=== PATIENT | female | born 1970 | race American Indian/Alaskan Native ===

== ENCOUNTER 2016-11-04 09:05 | Inpatient (IN) | payer SELFPAY ==
[2016-11-04 10:17] LABS: Basophils % (Auto) 0.4 % (0.0-1.8); Eosinophils % (Auto) 0.7 % (0.0-4.3); Hemoglobin 13.2 gm/dl (10.1-14.3); Mean Corpuscular HGB Conc 34 % (30-34); Mean Corpuscular Hemoglobin 30 pg (28-32); Mean Corpuscular Volume 88 fl (79-97); Platelet Count 261 K/mm3 (140-440); Red Blood Count 4.42 M/mm3 (3.65-5.03); Red Cell Distribution Width 13.5 % (13.2-15.2); White Blood Count 7.5 K/mm3 (4.5-11.0)
[2016-11-04 10:25] LABS: INR 0.98 (0.87-1.13)
[2016-11-04 10:26] LABS: Partial Thromboplastin Time 29.1 Sec. (24.2-36.6)
[2016-11-04 10:35] LABS: Anion Gap 19 mmol/L; Blood Urea Nitrogen 11 mg/dL (7-17); Calcium 9.1 mg/dL (8.4-10.2); Carbon Dioxide 24 mmol/L (22-30); Chloride 99.7 mmol/L (98-107); Glucose 115 mg/dL (65-100); Potassium 3.8 mmol/L (3.6-5.0); Sodium 139 mmol/L (137-145)
--- NOTE | 2016-11-04 11:48 | Cat Scan Report ---
CT HEAD WITHOUT CONTRAST: HISTORY: CVA. Serial contiguous axial images were obtained through the cranium. Intravenous contrast material was not administered. The ventricles are normal in size and appearance. There is no mass effect or midline shift. No areas of abnormally increased or decreased attenuation are seen. No mass lesion is seen. The mastoid air cells and visualized portions of the sinuses are normal. IMPRESSION: Cranial CT scan within normal limits.
[2016-11-04] MEDS ORDERED: ASPIRIN PO ONE (21:17)
--- NOTE | 2016-11-04 21:32 | Emergency Department Report ---
ED Neuro Deficit HPI - General Chief Complaint: Neuro Symptoms/Deficit Stated Complaint: RT SIDE FACE NUMBNESS/HEADACHE Time Seen by Provider: 11/04/16 20:28 Source: patient, old records reviewed Mode of arrival: Ambulatory Limitations: No Limitations - History of Present Illness Initial Comments: 46-year-old female with a past medical history presents to the hospital with right facial numbness. Patient states she has had intermittent right facial numbness for the last several months but more persistent since last night. She also says that her right eye feels heavy. Mild intermittent headache reported but no headache at this time. She says her face has a cold sensation like when you eat mint gum. She has chronic right ear ringing sounds 1 year and has not followed up with ENT. She states that both her arms feel weak. - Related Data Home Medications: Home Medications Medication Instructions Recorded Confirmed Last Taken No Known Home Medications [No 11/05/16 11/05/16 Unknown Reported Home Medications] Allergies/Adverse Reactions: Allergies Allergy/AdvReac Type Severity Reaction Status Date / Time No Known Allergies Allergy Unverified 07/19/13 13:42 ED Review of Systems ROS: Stated complaint: RT SIDE FACE NUMBNESS/HEADACHE Other details as noted in HPI Comment: All other systems reviewed and negative Other: Constitutional: No fevers chills Eyes: No eye pain visual changes or discharge ENT: as per hpi Neck: Denies pain Respiratory: Denies cough wheezing shortness of breath Cardiovascular: Denies chest pain, palpitations, syncope GI: Denies abdominal pain, nausea, vomiting, diarrhea : Denies dysuria, urinary frequency, or urgency Musculoskeletal: Denies back pain, joint swelling Skin: Denies rash, lesions, erythema Neurologic: as per hpi Psychiatric: Denies suicidal ideation, hallucinations Hematological/lymphatic: Denies easy bruising, lymphadenopathy ED Past Medical Hx - Past Medical History Previous Medical History?: No Hx Hypertension: No Hx Seizures: No - Surgical History Past Surgical History?: No - Social History Smoking Status: Never Smoker Substance Use Type: None - Medications Home Medications: Home Medications Medication Instructions Recorded Confirmed Last Taken Type No Known Home Medications [No 11/05/16 11/05/16 Unknown History Reported Home Medications] ED Neuro Physical Exam - General Limitations: No Limitations Suspected Stroke: Yes - NIHSS Assessment Interval: Baseline 1a. Level of Consciousness: alert 1b. LOC Questions: answers correctly 1c. LOC Commands: performs tasks correctly 2. Best Gaze: normal 3. Visual: no visual loss 4. Facial Palsy: normal symmetrical movement 5b. Motor Arm Right: no drift 5a. Motor Arm Left: no drift 6a. Motor Leg Left: no drift 6b. Motor Leg Right: no drift 7. Limb Ataxia: absent 8. Sensory: mild/moderate sensory loss 9. Best Language: no aphasia 10. Dysarthria: normal 11. Extinction/Inattention: no abnormality Total Score: 1 Stroke Severity: Minor Stroke - Other Other exam information: General: No limitations, patient is alert in no acute distress Head exam: Atraumatic, normocephalic Eyes exam: Normal appearance, pupils equal reactive to light, extraocular movements intact ENT: Moist mucous membrane, normal oropharynx Neck exam: Normal inspection, full range of motion, no meningismus nontender Respiratory exam: Clear to auscultation bilateral, no wheezes, rales, crackles Cardiovascular: Normal rate and rhythm, normal heart sounds Abdomen: Soft, nondistended, and nontender, with normal bowel sounds, no rebound, or guarding Extremity: Full range of motion normal inspection no deformity Back: Normal Inspection, full range of motion, no tenderness Neurologic: Alert, oriented x3, cranial nerves intact, no motor deficit, decreased sensation to touch and pinprick to the right side of the face Psychiatric: normal affect, normal mood Skin: Warm, dry, intact ED Course Vital Signs 11/04/16 11/04/16 11/05/16 09:13 20:31 00:00 Temperature 98.9 F 98.2 F Pulse Rate 79 71 74 Respiratory 14 14 12 Rate Blood Pressure 132/91 Blood Pressure 144/91 136/81 [Left] O2 Sat by Pulse 100 100 100 Oximetry - Reevaluation(s) Reevaluation #1: 11/04/16 22:09 asa given in ed - Consultations Consultation #1: 11/04/16 21:16 case d/w Dr Thomas, neurologist. Suggests admission to hospital for MRI given persistent numbness - Lab Data Result diagrams: 11/04/16 10:04 11/04/16 10:04 Lab Results 11/04/16 11/04/16 11/04/16 Range/Units 10:04 10:04 10:04 WBC 7.5 (4.5-11.0) K/mm3 RBC 4.42 (3.65-5.03) M/mm3 Hgb 13.2 (10.1-14.3) gm/dl Hct 39.0 (30.3-42.9) % MCV 88 (79-97) fl MCH 30 (28-32) pg MCHC 34 (30-34) % RDW 13.5 (13.2-15.2) % Plt Count 261 (140-440) K/mm3 Lymph % (Auto) 26.6 (13.4-35.0) % [place] % (Auto) 4.8 (0.0-7.3) % Eos % (Auto) 0.7 (0.0-4.3) % Baso % (Auto) 0.4 (0.0-1.8) % Lymph # 2.0 (1.2-5.4) K/mm3 [place] # 0.4 (0.0-0.8) K/mm3 Eos # 0.1 (0.0-0.4) K/mm3 Baso # 0.0 (0.0-0.1) K/mm3 Seg Neutrophils % 67.5 (40.0-70.0) % Seg Neutrophils # 5.0 (1.8-7.7) K/mm3 PT 12.9 (12.2-14.9) Sec. INR 0.98 (0.87-1.13) APTT 29.1 (24.2-36.6) Sec. Thrombin Time (15.1-19.6) Sec. Sodium 139 (137-145) mmol/L Potassium 3.8 (3.6-5.0) mmol/L Chloride 99.7 (98-107) mmol/L Carbon Dioxide 24 (22-30) mmol/L Anion Gap 19 mmol/L BUN 11 (7-17) mg/dL Creatinine 0.5 L (0.7-1.2) mg/dL Estimated GFR > 60 ml/min BUN/Creatinine Ratio 22.00 % Glucose 115 H (65-100) mg/dL Calcium 9.1 (8.4-10.2) mg/dL Troponin T < 0.010 (0.00-0.029) ng/mL 11/04/16 Range/Units 10:04 WBC (4.5-11.0) K/mm3 RBC (3.65-5.03) M/mm3 Hgb (10.1-14.3) gm/dl Hct (30.3-42.9) % MCV (79-97) fl MCH (28-32) pg MCHC (30-34) % RDW (13.2-15.2) % Plt Count (140-440) K/mm3 Lymph % (Auto) (13.4-35.0) % [place] % (Auto) (0.0-7.3) % Eos % (Auto) (0.0-4.3) % Baso % (Auto) (0.0-1.8) % Lymph # (1.2-5.4) K/mm3 [place] # (0.0-0.8) K/mm3 Eos # (0.0-0.4) K/mm3 Baso # (0.0-0.1) K/mm3 Seg Neutrophils % (40.0-70.0) % Seg Neutrophils # (1.8-7.7) K/mm3 PT (12.2-14.9) Sec. INR (0.87-1.13) APTT (24.2-36.6) Sec. Thrombin Time 14.0 L (15.1-19.6) Sec. Sodium (137-145) mmol/L Potassium (3.6-5.0) mmol/L Chloride (98-107) mmol/L Carbon Dioxide (22-30) mmol/L Anion Gap mmol/L BUN (7-17) mg/dL Creatinine (0.7-1.2) mg/dL Estimated GFR ml/min BUN/Creatinine Ratio % Glucose (65-100) mg/dL Calcium (8.4-10.2) mg/dL Troponin T (0.00-0.029) ng/mL - EKG Data -: EKG Interpreted by Me (nsr rate 75) When compared to previous EKG there are: previous EKG unavailable - Radiology Data Radiology results: report reviewed (ct head: naf) - Medical Decision Making After consultation with neurology inpatient workup and MRI recommended by neurology. - Differential Diagnosis multiple sclerosis, TIA, AK, facial nerve paresthesia - Thrombolytic Inclusion/Exclusion Thrombolytic Exclusion Criteria: Symptom Onset > 3 Hours Critical Care Time: No Critical care attestation.: If time is entered above; I have spent that time in minutes in the direct care of this critically ill patient, excluding procedure time. ED Disposition Clinical Impression: Rt facial numbness Disposition: OP ADMITTED IP TO THIS HOSP Is pt being admited?: Yes Does the pt Need Aspirin: Yes Condition: Stable Time of Disposition: 21:33 (Dr Meeks/hosp)
[2016-11-05] MEDS ORDERED: PHENERGAN PR PRN (00:29)
[2016-11-05] MEDS ORDERED: REGLAN PO PRN (00:29)
[2016-11-05] MEDS ORDERED: SODIUM CHLORIDE FLUSH SYRINGE 10 ML IV PRN (00:29)
[2016-11-05] MEDS ORDERED: ZOFRAN IV PRN (00:29)
[2016-11-05] MEDS ORDERED: MILK OF MAGNESIA PO PRN (00:29)
[2016-11-05] MEDS ORDERED: TYLENOL PO PRN (00:29)
[2016-11-05] MEDS ORDERED: DULCOLAX PR PRN (00:29)
--- NOTE | 2016-11-05 00:37 | History and Physical Report ---
History of Present Illness Date of examination: 11/05/16 Date of admission: 11/05/16 Chief complaint: Right-sided facial numbness History of present illness: This is a 46-year-old female with no significant past medical history presents to the hospital with right sided facial numbness. Patient states she has had intermittent right facial numbness for the last several months but more persistent since last night. She also says that her right eye feels heavy. Mild intermittent headache reported but no headache at this time. She says her face has a cold sensation like when one eat mint gum. She has chronic right ear ringing sounds 1 year and has not followed up with ENT. She states that both her arms also feel weak. She had CT scan in the ER which showed no acute process. Neurology recommended to admit her with stroke protocol. Patient denies any facial droop or difficulty in swallowing or speech. Past medical History: None Past surgical History: None Social History: Lives with family, denies any smoking, drinking and elicit drug abuse. Family History: Significant for stroke in grandmother and mother. Review of System: Constitutional: no fever, no chills, no weight loss Ears, eyes, nose, mouth and throat: no nasal congestion, no nasal discharge, no sinus pressure, no vision change, no red eye. Right ear ringing sensation. Neck: No neck pain or rigidity. Cardiovascular: No chest pain, no orthopnea, no palpitations, no leg swelling Respiratory: No shortness of breath, no cough, no congestion, no wheezing Gastrointestinal: no abdominal pain, no nausea, no vomiting Genitourinary : no dysuria, no hematuria Musculoskeletal: no joint swelling or muscle ache Integumentary: no rash, no pruritis Neurological: + right facial numbness, no tingling Endocrine: no cold or heat intolerance, no polyuria or polydipsia Hematologic/Lymphatic: no easy bruising, no easy bleeding, no gland swelling Allergic/Immunologic: no urticaria, no angioedema. Medications and Allergies Allergies Allergy/AdvReac Type Severity Reaction Status Date / Time No Known Allergies Allergy Unverified 07/19/13 13:42 Home Medications Medication Instructions Recorded Confirmed Last Taken Type No Known Home Medications [No 11/05/16 11/05/16 Unknown History Reported Home Medications] Exam - Physical Exam Narrative exam: GENERAL: This is well-developed well-nourished female lying on bed appeared to be in no discomfort. HEENT: Normocephalic. Atraumatic. Extraocular motions are intact. No conjunctival congestion or icterus. Patient has moist mucous membranes. External auditory canal and nares patent bilaterally. NECK: Supple. Trachea midline. No JVD, thyromagaly or lymphadenopathy. CHEST/LUNGS: Clear to auscultated bilaterally. There is no respiratory distress noted, breathing nonlabored. No wheezes crackles or rhonchi. HEART/CARDIOVASCULAR: Regular in rate and rhythm. PMI at the apex. There is no gallop rub or murmur. ABDOMEN: Abdomen is soft, nontender. Patient has normal bowel sounds. There is no abdominal distention. No organomagaly or rigidity. SKIN: There is no rash, no erythrema. There is no diaphoresis. Warm and dry. NEUROLOGY: The patient is awake, alert, and oriented. The patient is cooperative. The patient has normal speech. No focal motor deficit. MUSCULOSKELETAL: No joint effusion or tenderness. Muscle strength equal bilaterally. No muscle wasting. EXTRIMITY: No edema, cyanosis or clubbing. PSYCH: No depression or anxiety noted. Cooperative. - Constitutional Vitals: Temp Pulse Resp BP Pulse Ox 98.2 F 71 14 144/91 100 11/04/16 20:31 11/04/16 20:31 11/04/16 20:31 11/04/16 20:31 11/04/16 20:31 Results - Labs CBC & Chem 7: 11/04/16 10:04 11/04/16 10:04 Labs: Laboratory Last Values WBC 7.5 K/mm3 (4.5-11.0) 11/04/16 10:04 RBC 4.42 M/mm3 (3.65-5.03) 11/04/16 10:04 Hgb 13.2 gm/dl (10.1-14.3) 11/04/16 10:04 Hct 39.0 % (30.3-42.9) 11/04/16 10:04 MCV 88 fl (79-97) 11/04/16 10:04 MCH 30 pg (28-32) 11/04/16 10:04 MCHC 34 % (30-34) 11/04/16 10:04 RDW 13.5 % (13.2-15.2) 11/04/16 10:04 Plt Count 261 K/mm3 (140-440) 11/04/16 10:04 Lymph % (Auto) 26.6 % (13.4-35.0) 11/04/16 10:04 [place] % (Auto) 4.8 % (0.0-7.3) 11/04/16 10:04 Eos % (Auto) 0.7 % (0.0-4.3) 11/04/16 10:04 Baso % (Auto) 0.4 % (0.0-1.8) 11/04/16 10:04 Lymph # 2.0 K/mm3 (1.2-5.4) 11/04/16 10:04 [place] # 0.4 K/mm3 (0.0-0.8) 11/04/16 10:04 Eos # 0.1 K/mm3 (0.0-0.4) 11/04/16 10:04 Baso # 0.0 K/mm3 (0.0-0.1) 11/04/16 10:04 Seg Neutrophils % 67.5 % (40.0-70.0) 11/04/16 10:04 Seg Neutrophils # 5.0 K/mm3 (1.8-7.7) 11/04/16 10:04 PT 12.9 Sec. (12.2-14.9) 11/04/16 10:04 INR 0.98 (0.87-1.13) 11/04/16 10:04 APTT 29.1 Sec. (24.2-36.6) 11/04/16 10:04 Thrombin Time 14.0 Sec. (15.1-19.6) L 11/04/16 10:04 Sodium 139 mmol/L (137-145) 11/04/16 10:04 Potassium 3.8 mmol/L (3.6-5.0) 11/04/16 10:04 Chloride 99.7 mmol/L (98-107) 11/04/16 10:04 Carbon Dioxide 24 mmol/L (22-30) 11/04/16 10:04 Anion Gap 19 mmol/L 11/04/16 10:04 BUN 11 mg/dL (7-17) 11/04/16 10:04 Creatinine 0.5 mg/dL (0.7-1.2) L 11/04/16 10:04 Estimated GFR > 60 ml/min 11/04/16 10:04 BUN/Creatinine Ratio 22.00 % 11/04/16 10:04 Glucose 115 mg/dL (65-100) H 11/04/16 10:04 Calcium 9.1 mg/dL (8.4-10.2) 11/04/16 10:04 Troponin T < 0.010 ng/mL (0.00-0.029) 11/04/16 10:04 - Imaging and Cardiology CT Scan - head: report reviewed (no acute intracranial abnormality) Assessment and Plan Assessment and plan: Right sided facial numbness Tobacco abuse Plan: Admit to medicine Place on stroke protocol Obtain MRI of the head, carotid Doppler, 2-D echocardiogram Consult neurology Place on aspirin and statin Monitor BP, supportive care obtain B12 and TSH level GI and DVT prophylaxis Advance Directives: Yes VTE prophylaxis?: Chemical Plan of care discussed with patient/family: Yes
[2016-11-05] MEDS ORDERED: NACL 0.9% 1000 ML 1,000 ML IV SCH (01:00)
--- NOTE | 2016-11-05 10:39 | Magnetic Resonance Report ---
MRI BRAIN WITHOUT CONTRAST: 11/05/16 CLINICAL: Stroke. TECHNIQUE: Axial diffusion, T1, T2, FLAIR, gradient echo T2*, and sagittal T1 sequences on a 1.5 Sharee magnet. FINDINGS: Normal ventricles and sulci. No restricted diffusion. No abnormal signal. No mass or mass effect. No hemorrhage, edema or extra-axial collection. Normal pituitary and optic chiasm. The brainstem and cerebellum are normal. Intact vascular flow voids. Normal sinuses. The orbits, and soft tissues are normal. Normal calvarium and skull base. IMPRESSION: Normal study.
--- NOTE | 2016-11-05 12:56 | Event Note ---
Date: 11/05/16 Patient seen and examined. This is a follow-up from an admission earlier this morning. We will continue plan as outlined in H&P.
[2016-11-05] MEDS: ASPIRIN PO SCH (15:19)
[2016-11-05] MEDS: PEPCID PO SCH ×2 (15:19→22:16)
[2016-11-05] MEDS: LOVENOX SUB-Q SCH (15:21)
[2016-11-05] MEDS: ZOCOR PO SCH (22:15)
--- NOTE | 2016-11-06 08:18 | Discharge Summary ---
Providers - Providers Date of Admission: 11/05/16 00:29 Date of discharge: 11/07/16 Attending physician: REHANA PRIDE Primary care physician: TOPSTITCHER LOCKSTITCH Hospitalization Reason for admission: right face numbness Condition: Stable Hospital course: This is a 46-year-old female with no significant past medical history who presented to the hospital with right sided facial numbness. Patient stated she has had intermittent right facial numbness for the last several months but more persistent since the night prior to admission. She reports that right eye feels heavy. She does not report amaurosis fugax. Mild intermittent headache reported but no headache at this time. She has chronic right ear ringing sounds 1 year and has not followed up with ENT. She had CT scan in the ER which showed no acute process. Neurology recommended to admit her with stroke protocol. Patient denied any facial droop or difficulty in swallowing or speech. Patient had a carotid ultrasound which revealed right ICA stenosis of 50-79% and left ICA stenosis less than 50%. MRI was negative. Patient had no further deficits. Patient with CVA given that the symptoms lasted greater than one hour. However, given the fact the patient has had no residual deficits, we will discharge home with Plavix and follow-up with neurology. Patient also with no critical stenosis. Therefore patient will be followed up with vascular surgery as an outpatient. Echocardiogram was not available. Patient will need further follow-up with that as well as an outpatient. Dedicated discharge time 32 minutes. Disposition: DISCHARGED TO HOME OR SELFCARE - Discharge Diagnoses (1) CVA (cerebral vascular accident) Status: Acute Qualifiers: CVA mechanism: C Precerebral and cerebral artery: P Laterality of affected vessel: L Core Measure Documentation - Palliative Care Palliative Care/ Comfort Measures: Not Applicable - Core Measures Any of the following diagnoses?: stroke - Stroke Discharge Requirements Statin for LDL = or >70 mg/dl on DC: Yes Anticoag for atrial fib/atrial flutter: Not Applicable Reason for no anticoag for AF/F on DC: Not Indicated Antithrombotic for ischemic stroke: Yes Exam - Constitutional Vitals: Temp Pulse Resp BP Pulse Ox 98.2 F 73 18 107/64 97 11/06/16 05:36 11/06/16 05:36 11/06/16 05:36 11/06/16 05:36 11/06/16 05:36 General appearance: Present: no acute distress, well-nourished - EENT Eyes: Present: PERRL ENT: hearing intact, clear oral mucosa - Neck Neck: Present: supple, normal ROM - Respiratory Respiratory effort: normal Respiratory: bilateral: CTA - Cardiovascular Heart Sounds: Present: S1 & S2. Absent: rub, click - Extremities Extremities: pulses symmetrical, No edema Peripheral Pulses: within normal limits - Abdominal General gastrointestinal: Present: soft, non-tender, non-distended, normal bowel sounds Female genitourinary: Present: normal - Integumentary Integumentary: Present: clear, warm, dry - Musculoskeletal Musculoskeletal: gait normal, strength equal bilaterally - Psychiatric Psychiatric: appropriate mood/affect, intact judgment & insight - Neurologic Neurologic: CNII-XII intact, moves all extremities Plan Activity: no restrictions Weight Bearing Status: Full Weight Bearing Diet: low fat, low cholesterol, low salt Follow up with: PRIMARY CAREMD [Primary Care Provider] - 3-5 Days DUSTIN JENSEN MD [Staff Physician] - 7 Days TAYO ZAMORA MD [Staff Physician] - 7 Days Prescriptions: Aspirin [Aspirin TAB] 325 mg PO QDAY #30 tablet HYDROcodone/APAP 5-325 [[place] 5-325 mg TAB] 2 each PO Q6H PRN #30 tablet PRN Reason: Pain, Moderate (4-6) Simvastatin [Zocor TAB] 20 mg PO QHS #30 tablet
--- NOTE | 2016-11-06 12:24 | Progress Note ---
Assessment and Plan Assessment and plan: 1. TIA/CVA. Patient meets criteria for CVA given no resolution of symptoms less than 24 hours. MRI negative. Carotid Doppler however reveals 50-79% stenosis of right ICA and less than 50% stenosis of the left ICA. Given that there is no critical stenosis, patient may have outpatient follow-up with vascular surgery. Await echocardiogram. Patient will likely be discharged on aspirin and statin. 2. Tobacco abuse. Patient was counseled on tobacco cessation and risk factors associated with CVA. History Interval history: 46-year-old presents with right sided facial numbness and diagnosis of TIA/CVA. She denies focal deficits. No CP or SOB Hospitalist Physical - Constitutional Vitals: Temp Pulse Resp BP Pulse Ox 98.2 F 78 20 113/75 98 11/06/16 08:50 11/06/16 08:50 11/06/16 08:50 11/06/16 08:50 11/06/16 08:50 General appearance: Present: no acute distress, well-nourished - EENT Eyes: Present: PERRL, EOM intact ENT: hearing intact, clear oral mucosa, dentition normal - Neck Neck: Present: supple, normal ROM - Respiratory Respiratory effort: normal Respiratory: bilateral: CTA - Cardiovascular Rhythm: regular Heart Sounds: Present: S1 & S2. Absent: gallop, rub - Extremities Extremities: no ischemia, No edema, Full ROM - Abdominal General gastrointestinal: soft, non-tender, non-distended, normal bowel sounds - Integumentary Integumentary: Present: clear, warm, dry - Neurologic Neurologic: CNII-XII intact, moves all extremities Results - Labs CBC & Chem 7: 11/04/16 10:04 11/04/16 10:04 Labs: Laboratory Last Values WBC 7.5 K/mm3 (4.5-11.0) 11/04/16 10:04 RBC 4.42 M/mm3 (3.65-5.03) 11/04/16 10:04 Hgb 13.2 gm/dl (10.1-14.3) 11/04/16 10:04 Hct 39.0 % (30.3-42.9) 11/04/16 10:04 MCV 88 fl (79-97) 11/04/16 10:04 MCH 30 pg (28-32) 11/04/16 10:04 MCHC 34 % (30-34) 11/04/16 10:04 RDW 13.5 % (13.2-15.2) 11/04/16 10:04 Plt Count 261 K/mm3 (140-440) 11/04/16 10:04 Lymph % (Auto) 26.6 % (13.4-35.0) 11/04/16 10:04 [place] % (Auto) 4.8 % (0.0-7.3) 11/04/16 10:04 Eos % (Auto) 0.7 % (0.0-4.3) 11/04/16 10:04 Baso % (Auto) 0.4 % (0.0-1.8) 11/04/16 10:04 Lymph # 2.0 K/mm3 (1.2-5.4) 11/04/16 10:04 [place] # 0.4 K/mm3 (0.0-0.8) 11/04/16 10:04 Eos # 0.1 K/mm3 (0.0-0.4) 11/04/16 10:04 Baso # 0.0 K/mm3 (0.0-0.1) 11/04/16 10:04 Seg Neutrophils % 67.5 % (40.0-70.0) 11/04/16 10:04 Seg Neutrophils # 5.0 K/mm3 (1.8-7.7) 11/04/16 10:04 PT 12.9 Sec. (12.2-14.9) 11/04/16 10:04 INR 0.98 (0.87-1.13) 11/04/16 10:04 APTT 29.1 Sec. (24.2-36.6) 11/04/16 10:04 Thrombin Time 14.0 Sec. (15.1-19.6) L 11/04/16 10:04 Sodium 139 mmol/L (137-145) 11/04/16 10:04 Potassium 3.8 mmol/L (3.6-5.0) 11/04/16 10:04 Chloride 99.7 mmol/L (98-107) 11/04/16 10:04 Carbon Dioxide 24 mmol/L (22-30) 11/04/16 10:04 Anion Gap 19 mmol/L 11/04/16 10:04 BUN 11 mg/dL (7-17) 11/04/16 10:04 Creatinine 0.5 mg/dL (0.7-1.2) L 11/04/16 10:04 Estimated GFR > 60 ml/min 11/04/16 10:04 BUN/Creatinine Ratio 22.00 % 11/04/16 10:04 Glucose 115 mg/dL (65-100) H 11/04/16 10:04 Calcium 9.1 mg/dL (8.4-10.2) 11/04/16 10:04 Troponin T < 0.010 ng/mL (0.00-0.029) 11/04/16 10:04 Triglycerides 156 mg/dL (2-149) H 11/06/16 06:18 Cholesterol 155 mg/dL (50-199) 11/06/16 06:18 LDL Cholesterol Direct 93 mg/dL (50-130) 11/06/16 06:18 HDL Cholesterol 31 mg/dL (40-59) L 11/06/16 06:18 Cholesterol/HDL Ratio 5.00 % 11/06/16 06:18 Vitamin B12 854.2 pg/mL (211-911) 11/05/16 02:01 TSH 2.140 mlU/mL (0.270-4.200) 11/05/16 02:01
[2016-11-06] MEDS: LOVENOX SUB-Q SCH (12:51)
[2016-11-06] MEDS: NORCO 5/325 PO PRN (12:52)
[2016-11-06] MEDS: PEPCID PO SCH ×2 (12:53→22:38)
[2016-11-06] MEDS: ASPIRIN PO SCH (12:53)
[2016-11-06] MEDS: ZOCOR PO SCH (22:38)
--- NOTE | 2016-11-06 23:42 | Admit Criteria Form ---
Admission Criteria Documentation: NEUROLOGY GRG Clinical Indications for Admission to Inpatient Care (Place ' X' for any and all applicable criteria): Hospital admission is needed for appropriate care of the patient because of ANY ONE of the following: [ ]I. New-onset or worsening altered mental status remaining after emergency or observation level care (as appropriate) (9)(10)(11) [ ]II. Severe CANAL TENDER infections or inflammatory conditions, including ANY ONE of the following(1)(2)(3): [ ]a) Intracranial abscess [ ]b) Spinal abscess or myelitis [ ]c) Tuberculous or other nonbacterial, nonviral CANAL TENDER infection(8) [ ]III. Encephalitis(1)(2)(3) [ ]IV. Status epilepticus or repetitive seizures not controlled with emergent treatment [A] (7)(8) [ ]V. Transient alteration in consciousness with high-risk etiology; examples include (12)(13): [ ]a) Cardiovascular source [ ]b) Cataplexy [ ]. Cerebral aneurysm requiring ANY ONE of the following(14): [ ]a) IV antihypertensives or vasoactive agents [ ]b) Sedation and analgesia for suspected leak [ ]c) Need for external ventricular drainage and cerebral perfusion pressure monitoring [ ]d) Emergent evaluation to determine need for surgical clipping or endovascular coiling by interventional radiology. If surgery is required ( Also use Craniotomy, Supratentorial, for Surgery of Bleeding Intracranial Aneurysm (for bleeding aneurysm) or Craniotomy, Supratentorial (for nonbleeding aneurysm) as appropriate. [ ]VII. Altered mental status that is severe or persistent(16) [ ]VIII New-onset severe neurologic findings requiring inpatient care; examples include: [ ]a) Papilledema [ ]b) Cerebral edema [ ]c) Mass effect on imaging [X ]IX. New-onset severe neurologic symptom requiring inpatient care indicated by ANY ONE of the following: [ ]a) Aphasia(15) [ ]b) Weakness (grade 3 or less) [ ]c) Paralysis (eg, hemiplegia) [ ]d) Spasticity(16) [ ]e) Ataxia(17) [ ]f) Amnesia(18) [ ]g) Involuntary movements(19) [ ]h) Vertigo [ X]i) Other severe neurologic symptom not treatable at alternative level of care (eg, observation care) [ ]X. Guillain-Willows syndrome(20) [ ]XI. Myasthenia gravis crisis or inpatient monitoring need as indicated by ANY ONE of the following(21): [ ]a) Inadequate airway protection [ ]b) Respiratory insufficiency requiring intubation or inpatient. monitoring [ ]c) Progressive dysphagia with failure to thrive [ ]d) Intensive treatment (eg, course of plasmapheresis) with inadequate outpatient situation to monitor patients status [ ]XII. Multiple sclerosis or other acute demyelinating disease requiring inpatient care as indicated by ANY ONE of the following (22)(23): [ ]a) Acute severe deterioration requiring inpatient treatment (eg, IV steroids, plasmapheresis, close observation) [ ]b) Acute complication requiring inpatient care (eg, sepsis, severe decubitus, aspiration) [ ]XIII. Intracranial hypertension (eg, pseudotumor cerebri) requiring inpatient care (eg, acute visual loss, inadequate oral intake) (24) [ ]XIV.Parkinson disease requiring inpatient care (Also use Optimal Recovery Care Criteria or General Recovery Criteria as appropriate) indicated by ANY ONE of the following(25): [ ]a) Infection (eg, aspiration pneumonia) not treatable at alternative level of care [ ]b) Volume depletion not responsive to emergency and observation care treatment (as appropriate) [ ]c) Life-threatening agitation or psychotic behavior not treatable on emergency, observation care, or alternative level (eg, residential) basis [ ]d) Severe medication withdrawal effects (eg, freezing, neuroleptic malignant syndrome) not responsive to emergency and observation care treatment (as appropriate) [ ]e) Other severe manifestation not treatable at alternative level of care [ ]XV.Amyotrophic lateral sclerosis with inpatient care needs as indicated by ANY ONE of the following(26): [ ]a) Acute complications requiring inpatient care (Use Optimal Recovery Care Criteria or General Recovery Criteria as appropriate); examples include: [ ]i) Aspiration pneumonia [ ]ii) Sepsis [ ]b) Dehydration or hypovolemia (not responsive to emergency and observation care treatment as appropriate) AND artificial support desired [ ]c) Inadequate airway protection AND artificial support desired [ ]d) Severe ventilatory insufficiency AND artificial support desired [ ]XVI.Severe myopathy, neuropathy, or other neuromuscular disease as indicated by ANY ONE of the following: [ ]a) New-onset severe diffuse weakness (eg, strength 3/5 or less) [ ]b) Severe dysphagia [ ]c) Dyspnea at rest or with minimal exertion (new) [ ]d) Inadequate airway protection [ ]e) Inadequate ventilation as indicated by ANY ONE of the following : [ ]i) Partial pressure of carbon dioxide greater than 44 mm Hg (5.9 kPa) (new) [ ]ii) Reduced peak expiratory flow rate (new) [ ]iii) Vital capacity less than 50% of predicted ( less than 15 mL/kg) [ ]iv) Peak inspiratory force less negative than -30 cm H20 (-2942 Pa) [ ]XVII.Complications of congenital or degenerative disease (eg, infection, seizures, dehydration, injury) not responsive to emergency and observation care treatment (as appropriate ) [C](16)(29)(30) [ ]XVIII.Suspected or confirmed nerve or muscle toxic injury, including ANY ONE of the following: [ ]a) Rhabdomyolysis(31) [ ]b) Botulism(32) [ ]c) Other severe toxin-induced sign or symptom [ ]XIX. Neurologic trauma requiring inpatient treatment (medical) indicated by ANY ONE of the following(33)(34): [ ]a) Vital signs or neurologic signs more frequently than every 4 hours [ ]b) Hyperosmolar therapy [ ]c) Respiratory monitoring [ ]d) Intracranial pressure monitoring and treatment [ ]e) Stabilization and immobilization device placement (eg, braces, body jacket) [ ]f) Intubation & mechanical ventilation for airway protection or therapeutic hyperventilation [ ]g) Other treatment or monitoring needed that requires inpatient level of care [ ]XX.Complications of neurologic devices (eg, ventricular shunt, neurostimulator) requiring ANY ONE of the following(35)(36): [ ]a) IV antibiotics with monitoring while awaiting culture results [ ]b) Monitoring for hydrocephalus [ ]XXI Vasculitis with ANY ONE of the following(4)(5): [ ]a) Altered mental status [ ]b) Psychosis [ ]c) Seizures [ ]XXII. Neurology condition and ALL of the following: [ ]a) Symptom or finding for which emergency and observation care have failed or are not considered appropriate (Use General Criteria: Observation Care as appropriate) [ ]b) Presence of ANY ONE of the following: [ ]i) A General Admission Criteria [ ]ii A Pediatric General Admission Criteria The original [facility] content created by [facility] has been revised. The portions of the content which have been revised are identified through the use of italic text or in bold, and [facility] has neither reviewed nor approved the modified material. All other unmodified content is copyright [facility] Please see references footnoted in the original [facility] edition 2016 Admission Criteria Met: Yes
[2016-11-07 08:43] VITALS: BP 139/83
[2016-11-07] MEDS: NORCO 5/325 PO PRN ×2 (08:50→09:12)
[2016-11-07] MEDS: ASPIRIN PO SCH (09:12)
[2016-11-07] MEDS: PEPCID PO SCH (09:12)
[2016-11-07] MEDS: LOVENOX SUB-Q SCH (09:14)
--- NOTE | 2016-11-07 21:50 | Echocardiography Report ---
REASON FOR STUDY: Acute stroke. INTERPRETATION: The aortic root appears normal. The left atrium appears normal in size. No thrombus is identified. The right atrium appears normal in size. No thrombus is identified. The mitral valve appears structurally normal with mild mitral regurgitation. There is no evidence of mitral stenosis. The tricuspid valve appears structurally normal with trace tricuspid regurgitation. No evidence of tricuspid stenosis. The aortic valve is structurally normal. There is no evidence of aortic stenosis or regurgitation. The pulmonic valve appears structurally normal. There is trace pulmonic regurgitation. The left ventricular cavity appears normal in size with normal global systolic function. The estimated left ventricular ejection fraction is 55-60%. Left ventricular diastolic function is normal. Right ventricular size and systolic function are normal. There is no pericardial effusion. No intracardiac thrombosis identified by the study. SUMMARY: No intracardiac thrombosis identified by the study. There is mild mitral regurgitation. There is trace tricuspid regurgitation. The left ventricular cavity appears normal in size with normal global systolic function. EF 55-60%. Normal right ventricular size and systolic function. [facility]# [id number] EMIR/NAEEM BURDICK
== END 2016-11-07 10:03 | disposition home or self-care (01) | DRG 66 ==
LOC: ED 09:05 → 4A 11-05 00:29
PROVIDERS: ADMIT Internal Medicine; ATTEND Hospitalist
DX: I63.9 Cerebral infarction, unspecified (principal); I65.23 Occlusion and stenosis of bilateral carotid arteries; Z82.3 Family history of stroke; Z72.0 Tobacco use; Z71.6 Tobacco abuse counseling
CPT/HCPCS: 36415; 70450; 70551; 80048; 80061; 82607; 82962; 84443; 84484; 85025; 85610; 85670; 85730; 93005; 93010; 93306; 93880; 99406; J1650; J7030

== ENCOUNTER 2016-12-17 17:43 | Emergency (ER) | payer SELFPAY ==
--- NOTE | 2016-12-17 18:41 | Cat Scan Report ---
FINAL REPORT EXAM: CT HEAD/BRAIN WO CON HISTORY: neuro deficits TECHNIQUE: CT head without contrast PRIORS: None. FINDINGS: No acute intra-axial or extra-axial hemorrhage is identified. There is no evidence of midline shift or mass effect. The ventricles and sulci are within normal limits. [place]-white matter differentiation is intact. No acute parenchymal abnormalities seen. Bony calvarium is grossly intact. Visualized portions of the mastoids and paranasal sinuses are unremarkable. IMPRESSION: Negative CT head
[2016-12-17 19:55] LABS: Basophils % (Auto) 0.2 % (0.0-1.8); Hematocrit 36.4 % (30.3-42.9); Hemoglobin 12.3 gm/dl (10.1-14.3); Mean Corpuscular HGB Conc 34 % (30-34); Mean Corpuscular Hemoglobin 30 pg (28-32); Mean Corpuscular Volume 88 fl (79-97); Platelet Count 279 K/mm3 (140-440); Red Blood Count 4.14 M/mm3 (3.65-5.03); Red Cell Distribution Width 13.6 % (13.2-15.2); White Blood Count 9.3 K/mm3 (4.5-11.0)
[2016-12-17 20:06] LABS: INR 0.91 (0.87-1.13); Partial Thromboplastin Time 31.3 Sec. (24.2-36.6)
[2016-12-17 20:10] LABS: Anion Gap 15 mmol/L; Blood Urea Nitrogen 9 mg/dL (7-17); Calcium 9.6 mg/dL (8.4-10.2); Carbon Dioxide 28 mmol/L (22-30); Chloride 96.8 mmol/L (98-107); Glucose 103 mg/dL (65-100); Potassium 3.3 mmol/L (3.6-5.0); Sodium 136 mmol/L (137-145)
[2016-12-18] MEDS ORDERED: FIORICET PO ONE (05:07)
[2016-12-18 05:29] VITALS: BP 104/68
--- NOTE | 2016-12-18 06:16 | Emergency Department Report ---
ED Neuro Deficit HPI - General Chief Complaint: Neuro Symptoms/Deficit Stated Complaint: RECENT STROKE Oct/NUMBNESS/TINGLING Time Seen by Provider: 12/18/16 06:12 Source: patient Mode of arrival: Ambulatory Limitations: No Limitations - History of Present Illness Initial Comments: She was admitted in October for a stroke workup which included an MRI which was negative. 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 Her symptoms were paresthesias of the right face. Patient states that this time the paresthesias instead of stopping at her mandibular area involved her entire right face. She does not complain of pain or headache. He does not complain of numbness. She describes a pins and needles sensation. She denies any other sort of neurological change. She does not complain of neck pain. -: Gradual, days(s) Location: right face Presenting Symptoms: Absent: Weak/Paralyzed One Side, Sudden, Severe Headache, Blurred/Loss of Vision, Facial Droop/Numbness, Unable to Speak Clearly, Altered Mental Status History of same: Yes Place: home Severity: moderate Quality: tingling Improves With: none Worsens With: none On Anticoagulants: No Context: gradual onset Associated Symptoms: denies other symptoms Treatments Prior to Arrival: none - Related Data Home Medications: Previous Rx's Medication Instructions Recorded Last Taken Type Aspirin [Aspirin TAB] 325 mg PO QDAY #30 tablet 11/07/16 Unknown Rx HYDROcodone/APAP 5-325 [[place] 2 each PO Q6H PRN #30 tablet 11/07/16 Unknown Rx 5-325 mg TAB] Simvastatin [Zocor TAB] 20 mg PO QHS #30 tablet 11/07/16 Unknown Rx Simvastatin [Zocor TAB] 20 mg PO QHS #30 tablet 12/18/16 Unknown Rx traMADol [Ultram 50 MG tab] 50 mg PO Q6HR PRN #14 tablet 12/18/16 Unknown Rx Allergies/Adverse Reactions: Allergies Allergy/AdvReac Type Severity Reaction Status Date / Time No Known Allergies Allergy Verified 12/17/16 17:57 ED Review of Systems ROS: Stated complaint: RECENT STROKE Oct/NUMBNESS/TINGLING Other details as noted in HPI Constitutional: denies: chills, fever Eyes: denies: eye pain, eye discharge, vision change ENT: denies: ear pain, throat pain Respiratory: denies: cough, shortness of breath, wheezing Cardiovascular: denies: chest pain, palpitations Endocrine: no symptoms reported Gastrointestinal: denies: abdominal pain, nausea, diarrhea Genitourinary: denies: urgency, dysuria, discharge Musculoskeletal: denies: back pain, joint swelling, arthralgia Skin: denies: rash, lesions Neurological: paresthesias. denies: headache, weakness, numbness, confusion, abnormal gait Psychiatric: denies: anxiety, depression Hematological/Lymphatic: denies: easy bleeding, easy bruising ED Past Medical Hx - Past Medical History Hx Hypertension: No Hx CVA: Yes (TIA (OCTOBER 2016)) Hx Congestive Heart Failure: No Hx Diabetes: No Hx Seizures: No Hx Asthma: No Hx COPD: No Additional medical history: HIGH CHOLESTEROL. LEFT ICA STENOSIS - Surgical History Additional Surgical History: TUBAL LIGATION - Social History Smoking Status: Current Every Day Smoker Substance Use Type: Prescribed - Medications Home Medications: Home Medications Medication Instructions Recorded Confirmed Last Taken Type Aspirin [Aspirin TAB] 325 mg PO QDAY #30 tablet 11/07/16 Unknown Rx HYDROcodone/APAP 5-325 [[place] 2 each PO Q6H PRN #30 tablet 11/07/16 Unknown Rx 5-325 mg TAB] Simvastatin [Zocor TAB] 20 mg PO QHS #30 tablet 11/07/16 Unknown Rx Simvastatin [Zocor TAB] 20 mg PO QHS #30 tablet 12/18/16 Unknown Rx traMADol [Ultram 50 MG tab] 50 mg PO Q6HR PRN #14 tablet 12/18/16 Unknown Rx ED Neuro Physical Exam - General Limitations: No Limitations General appearance: alert, in no apparent distress Suspected Stroke: No - Head Head exam: Present: atraumatic, normocephalic - Eye Eye exam: Present: normal appearance, PERRL, EOMI. Absent: scleral icterus - ENT ENT exam: Present: normal exam, mucous membranes moist - Neck Neck exam: Present: normal inspection, other (carotids without bruit). Absent: tenderness, meningismus - Respiratory Respiratory exam: Present: normal lung sounds bilaterally. Absent: respiratory distress - Cardiovascular Cardiovascular Exam: Present: regular rate, normal rhythm. Absent: systolic murmur, diastolic murmur, rubs, gallop - GI/Abdominal GI/Abdominal exam: Present: soft, normal bowel sounds. Absent: distended, tenderness, guarding, rebound - Extremities Exam Extremities exam: Present: normal inspection - Back Exam Back exam: Present: normal inspection - Neurological Exam Neurological exam: Present: alert, oriented X3, CN II-XII intact, other ( cerebellar testing was normal). Absent: motor sensory deficit - NIHSS Assessment Interval: Baseline 1a. Level of Consciousness: alert 1b. LOC Questions: answers correctly 1c. LOC Commands: performs tasks correctly 2. Best Gaze: normal 3. Visual: no visual loss 4. Facial Palsy: normal symmetrical movement 5b. Motor Arm Right: no drift 5a. Motor Arm Left: no drift 6a. Motor Leg Left: no drift 6b. Motor Leg Right: no drift 7. Limb Ataxia: absent 8. Sensory: normal 9. Best Language: no aphasia 10. Dysarthria: normal 11. Extinction/Inattention: no abnormality Total Score: 0 Stroke Severity: No Stroke Symptoms - Psychiatric Psychiatric exam: Present: normal affect, anxious - Skin Skin exam: Present: warm, dry, intact, normal color. Absent: rash ED Course Vital Signs 12/17/16 12/18/16 12/18/16 17:50 05:27 05:28 Temperature 98.4 F 97.9 F Pulse Rate 80 81 Respiratory 17 20 18 Rate Blood Pressure 144/96 Blood Pressure 104/68 [Left] O2 Sat by Pulse 98 98 Oximetry 12/18/16 05:29 Temperature Pulse Rate Respiratory 18 Rate Blood Pressure Blood Pressure [Left] O2 Sat by Pulse 98 Oximetry - Reevaluation(s) Reevaluation #1: The patient never followed up with a neurologist as per recommendation on previous discharge. Shayan recommend continued aspirin. Hospitalization is not indicated. Symptoms are restricted to paresthesias of the previously negative workup essentially. She does have carotid disease but it is nonobstructive. 12/18/16 06:41 - Lab Data Result diagrams: 12/17/16 19:23 12/17/16 19:23 Lab Results 12/17/16 12/17/16 12/17/16 Range/Units 19:23 19:23 19:23 WBC 9.3 (4.5-11.0) K/mm3 RBC 4.14 (3.65-5.03) M/mm3 Hgb 12.3 (10.1-14.3) gm/dl Hct 36.4 (30.3-42.9) % MCV 88 (79-97) fl MCH 30 (28-32) pg MCHC 34 (30-34) % RDW 13.6 (13.2-15.2) % Plt Count 279 (140-440) K/mm3 Lymph % (Auto) 30.3 (13.4-35.0) % [place] % (Auto) 4.3 (0.0-7.3) % Eos % (Auto) 1.0 (0.0-4.3) % Baso % (Auto) 0.2 (0.0-1.8) % Lymph # 2.8 (1.2-5.4) K/mm3 [place] # 0.4 (0.0-0.8) K/mm3 Eos # 0.1 (0.0-0.4) K/mm3 Baso # 0.0 (0.0-0.1) K/mm3 Seg Neutrophils % 64.2 (40.0-70.0) % Seg Neutrophils # 5.9 (1.8-7.7) K/mm3 PT 12.2 (12.2-14.9) Sec. INR 0.91 (0.87-1.13) APTT 31.3 (24.2-36.6) Sec. Thrombin Time (15.1-19.6) Sec. Sodium 136 L (137-145) mmol/L Potassium 3.3 L (3.6-5.0) mmol/L Chloride 96.8 L (98-107) mmol/L Carbon Dioxide 28 (22-30) mmol/L Anion Gap 15 mmol/L BUN 9 (7-17) mg/dL Creatinine 0.5 L (0.7-1.2) mg/dL Estimated GFR > 60 ml/min BUN/Creatinine Ratio 18.00 % Glucose 103 H (65-100) mg/dL Calcium 9.6 (8.4-10.2) mg/dL Troponin T < 0.010 (0.00-0.029) ng/mL 12/17/16 Range/Units 19:23 WBC (4.5-11.0) K/mm3 RBC (3.65-5.03) M/mm3 Hgb (10.1-14.3) gm/dl Hct (30.3-42.9) % MCV (79-97) fl MCH (28-32) pg MCHC (30-34) % RDW (13.2-15.2) % Plt Count (140-440) K/mm3 Lymph % (Auto) (13.4-35.0) % [place] % (Auto) (0.0-7.3) % Eos % (Auto) (0.0-4.3) % Baso % (Auto) (0.0-1.8) % Lymph # (1.2-5.4) K/mm3 [place] # (0.0-0.8) K/mm3 Eos # (0.0-0.4) K/mm3 Baso # (0.0-0.1) K/mm3 Seg Neutrophils % (40.0-70.0) % Seg Neutrophils # (1.8-7.7) K/mm3 PT (12.2-14.9) Sec. INR (0.87-1.13) APTT (24.2-36.6) Sec. Thrombin Time 15.2 (15.1-19.6) Sec. Sodium (137-145) mmol/L Potassium (3.6-5.0) mmol/L Chloride (98-107) mmol/L Carbon Dioxide (22-30) mmol/L Anion Gap mmol/L BUN (7-17) mg/dL Creatinine (0.7-1.2) mg/dL Estimated GFR ml/min BUN/Creatinine Ratio % Glucose (65-100) mg/dL Calcium (8.4-10.2) mg/dL Troponin T (0.00-0.029) ng/mL Laboratory Results - last 24 hr 12/17/16 12/17/16 12/17/16 19:23 19:23 19:23 WBC 9.3 RBC 4.14 Hgb 12.3 Hct 36.4 MCV 88 MCH 30 MCHC 34 RDW 13.6 Plt Count 279 Lymph % (Auto) 30.3 [place] % (Auto) 4.3 Eos % (Auto) 1.0 Baso % (Auto) 0.2 Lymph # 2.8 [place] # 0.4 Eos # 0.1 Baso # 0.0 Seg Neutrophils % 64.2 Seg Neutrophils # 5.9 PT 12.2 INR 0.91 APTT 31.3 Thrombin Time Sodium 136 L Potassium 3.3 L Chloride 96.8 L Carbon Dioxide 28 Anion Gap 15 BUN 9 Creatinine 0.5 L Estimated GFR > 60 BUN/Creatinine Ratio 18.00 Glucose 103 H Calcium 9.6 Troponin T < 0.010 12/17/16 19:23 WBC RBC Hgb Hct MCV MCH MCHC RDW Plt Count Lymph % (Auto) [place] % (Auto) Eos % (Auto) Baso % (Auto) Lymph # [place] # Eos # Baso # Seg Neutrophils % Seg Neutrophils # PT INR APTT Thrombin Time 15.2 Sodium Potassium Chloride Carbon Dioxide Anion Gap BUN Creatinine Estimated GFR BUN/Creatinine Ratio Glucose Calcium Troponin T - EKG Data -: EKG Interpreted by Me EKG shows normal: sinus rhythm, axis, intervals, QRS complexes, ST-T waves Rate: normal Interpretation: normal EKG - Radiology Data Radiology results: report reviewed (CT of the head no acute process normal exam) Critical care attestation.: If time is entered above; I have spent that time in minutes in the direct care of this critically ill patient, excluding procedure time. ED Disposition Clinical Impression: Facial paresthesia Disposition: DISCHARGED TO HOME OR SELFCARE Is pt being admited?: No Does the pt Need Aspirin: No Condition: Stable Instructions: Paresthesia (ED) Additional Instructions: Continue Zocor and aspirin. Follow-up with neurologist. Return any acute change or problem. Prescriptions: Simvastatin [Zocor TAB] 20 mg PO QHS #30 tablet traMADol [Ultram 50 MG tab] 50 mg PO Q6HR PRN #14 tablet PRN Reason: Pain Referrals: PRIMARY CARE, [Primary Care Provider] - 3-5 Days ARMAAN YI MD [Staff Physician] - 2-[address] [facility] [Provider Group] - 2-3 Days Time of Disposition: 06:44
[2016-12-18] MEDS ORDERED: ASPIRIN PO ONE (06:45)
[2016-12-18] MEDS ORDERED: ULTRAM PO ONE (06:45)
== END 2016-12-18 07:10 | disposition home or self-care (01) ==
LOC: ED 17:43
DX: R20.8 Other disturbances of skin sensation (principal); E78.00 Pure hypercholesterolemia, unspecified; F17.200 Nicotine dependence, unspecified, uncomplicated; Z86.73 Personal history of transient ischemic attack (TIA), and cerebral infarction without residual deficits; Z79.82 Long term (current) use of aspirin; Z79.899 Other long term (current) drug therapy; Z79.1 Long term (current) use of non-steroidal anti-inflammatories (NSAID); Z98.51 Tubal ligation status
CPT/HCPCS: 36415; 70450; 80048; 84484; 85025; 85610; 85670; 85730; 93005; 93010

== ENCOUNTER 2017-08-26 13:12 | Inpatient (IN) | payer SELFPAY ==
[2017-08-26 14:07] LABS: Basophils % (Auto) 0.3 % (0.0-1.8); Eosinophils % (Auto) 0.6 % (0.0-4.3); Hematocrit 38.6 % (30.3-42.9); Hemoglobin 13.5 gm/dl (10.1-14.3); Mean Corpuscular HGB Conc 35 % (30-34); Mean Corpuscular Hemoglobin 30 pg (28-32); Mean Corpuscular Volume 85 fl (79-97); Platelet Count 272 K/mm3 (140-440); Red Blood Count 4.52 M/mm3 (3.65-5.03); Red Cell Distribution Width 14.1 % (13.2-15.2); White Blood Count 7.2 K/mm3 (4.5-11.0)
[2017-08-26 14:27] LABS: Alanine Aminotransferase 12 units/L (7-56); Albumin 4.4 g/dL (3.9-5); Albumin/Globulin Ratio 1.3 %; Alkaline Phosphatase 104 units/L (35-129); Anion Gap 20 mmol/L; BUN/Creatinine Ratio 15; Blood Urea Nitrogen 9 mg/dL (7-17); Calcium 9.1 mg/dL (8.4-10.2); Carbon Dioxide 24 mmol/L (22-30); Chloride 99.7 mmol/L (98-107); Glucose 147 mg/dL (65-100); Potassium 3.7 mmol/L (3.6-5.0); Sodium 140 mmol/L (137-145); Total Protein 7.8 g/dL (6.3-8.2)
[2017-08-26] MEDS ORDERED: ATIVAN IV ONE (14:49)
--- NOTE | 2017-08-26 14:55 | Emergency Department Report ---
HPI - General Chief Complaint: Altered Mental Status Time Seen by Provider: 08/26/17 14:35 - HPI HPI: Room 3 The patient is a 47-year-old female presenting with chief complaint of syncope. The patient's states that the patient told him while he was in the bathroom that she didn't feel well. He states the patient began complaining of feeling hot and cold. The patient then had a syncopal episode. The states he did not witness convulsions. The patient states she felt dizzy and she has had intermittent right-sided numbness every day since October 2016. Patient denies pain of any type. Patient denies shortness of breath. Patient has sporadic "twitching" of alternating extremities which appear intentional Location: [facility] Duration: [See above] Quality: Syncope Severity: Moderate Modifying factors: [see above] Context: [see above] Mode of transportation: [not driving] ED Past Medical Hx - Past Medical History Previous Medical History?: Yes Hx CVA: Yes (TIA (OCTOBER 2016)) Additional medical history: HIGH CHOLESTEROL. LEFT ICA STENOSIS - Surgical History Past Surgical History?: Yes Additional Surgical History: TUBAL LIGATION - Family History Family history: no significant - Social History Smoking Status: Current Every Day Smoker (1/3 pack per day) Substance Use Type: None (denies illicit drug use) - Medications Home Medications: Home Medications Medication Instructions Recorded Confirmed Last Taken Type Aspirin [Aspirin TAB] 325 mg PO QDAY #30 tablet 11/07/16 Unknown Rx HYDROcodone/APAP 5-325 [[place] 2 each PO Q6H PRN #30 tablet 11/07/16 Unknown Rx 5-325 mg TAB] Simvastatin [Zocor TAB] 20 mg PO QHS #30 tablet 11/07/16 Unknown Rx Simvastatin [Zocor TAB] 20 mg PO QHS #30 tablet 12/18/16 Unknown Rx traMADol [Ultram 50 MG tab] 50 mg PO Q6HR PRN #14 tablet 12/18/16 Unknown Rx ED Review of Systems ROS: Stated complaint: AMS Other details as noted in HPI Eyes: denies: eye pain ENT: denies: ear pain Respiratory: denies: shortness of breath Cardiovascular: denies: chest pain Gastrointestinal: denies: abdominal pain Genitourinary: denies: dysuria Musculoskeletal: denies: back pain Neurological: other (syncope). denies: headache Psychiatric: other (multiple stressors currently) Physical Exam - Physical Exam Vital Signs: Vital Signs 08/26/17 13:27 Temperature 98.6 F Pulse Rate 100 H Respiratory 18 Rate Blood Pressure 143/83 O2 Sat by Pulse 100 Oximetry Physical Exam: GENERAL: The patient is well-developed well-nourished female lying on stretcher with intermittent twitching alternating extremities which appear intentional. [] HEENT: Normocephalic. Atraumatic. Extraocular motions are intact. Patient has moist mucous membranes. NECK: Supple. Trachea midline CHEST/LUNGS: Clear to auscultation. There is no respiratory distress noted. HEART/CARDIOVASCULAR: Regular. There is no tachycardia. There is no gallop rub or murmur. ABDOMEN: Abdomen is soft, nontender. Patient has normal bowel sounds. There is no abdominal distention. SKIN: There is no rash. There is no edema. There is no diaphoresis. NEURO: The patient is awake, alert, and oriented. The patient is cooperative. The patient has no focal neurologic deficits. The patient has normal speech. The patient exhibits intermittent twitching of alternating extremities which appear intentional. 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 Moves all extremities MUSCULOSKELETAL: There is no evidence of acute injury. ED Course Vital Signs 08/26/17 13:27 Temperature 98.6 F Pulse Rate 100 H Respiratory 18 Rate Blood Pressure 143/83 O2 Sat by Pulse 100 Oximetry ED Medical Decision Making - Lab Data Result diagrams: 08/26/17 13:47 08/26/17 13:47 Laboratory Tests 08/26/17 08/26/17 08/26/17 13:47 13:47 13:47 WBC 7.2 RBC 4.52 Hgb 13.5 Hct 38.6 MCV 85 MCH 30 MCHC 35 H RDW 14.1 Plt Count 272 Lymph % (Auto) 23.8 [place] % (Auto) 5.3 Eos % (Auto) 0.6 Baso % (Auto) 0.3 Lymph # 1.7 [place] # 0.4 Eos # 0.0 Baso # 0.0 Seg Neutrophils % 70.0 Seg Neutrophils # 5.0 Sodium 140 Potassium 3.7 Chloride 99.7 Carbon Dioxide 24 Anion Gap 20 BUN 9 Creatinine 0.6 L Estimated GFR > 60 BUN/Creatinine Ratio 15 Glucose 147 H Lactic Acid 1.60 Calcium 9.1 Magnesium 2.10 Total Bilirubin 0.30 AST 13 ALT 12 Alkaline Phosphatase 104 Total Creatine Kinase CK-MB (CK-2) CK-MB (CK-2) Rel Index Troponin T Total Protein 7.8 Albumin 4.4 Albumin/Globulin Ratio 1.3 TSH Salicylates Acetaminophen Plasma/Serum Alcohol 08/26/17 08/26/17 08/26/17 13:47 13:47 13:47 WBC RBC Hgb Hct MCV MCH MCHC RDW Plt Count Lymph % (Auto) [place] % (Auto) Eos % (Auto) Baso % (Auto) Lymph # [place] # Eos # Baso # Seg Neutrophils % Seg Neutrophils # Sodium Potassium Chloride Carbon Dioxide Anion Gap BUN Creatinine Estimated GFR BUN/Creatinine Ratio Glucose Lactic Acid Calcium Magnesium Total Bilirubin AST ALT Alkaline Phosphatase Total Creatine Kinase CK-MB (CK-2) CK-MB (CK-2) Rel Index Troponin T Total Protein Albumin Albumin/Globulin Ratio TSH 0.435 Salicylates < 0.3 L Acetaminophen < 15.0 Plasma/Serum Alcohol 08/26/17 08/26/17 13:47 13:47 WBC RBC Hgb Hct MCV MCH MCHC RDW Plt Count Lymph % (Auto) [place] % (Auto) Eos % (Auto) Baso % (Auto) Lymph # [place] # Eos # Baso # Seg Neutrophils % Seg Neutrophils # Sodium Potassium Chloride Carbon Dioxide Anion Gap BUN Creatinine Estimated GFR BUN/Creatinine Ratio Glucose Lactic Acid Calcium Magnesium Total Bilirubin AST ALT Alkaline Phosphatase Total Creatine Kinase 46 CK-MB (CK-2) < 1.0 CK-MB (CK-2) Rel Index 2.1 Troponin T < 0.010 Total Protein Albumin Albumin/Globulin Ratio TSH Salicylates Acetaminophen Plasma/Serum Alcohol < 0.01 - EKG Data -: EKG Interpreted by Co EKG shows normal: sinus rhythm Rate: normal - EKG Data When compared to previous EKG there are: no significant change Interpretation: unchanged when compared t (12/17/2016) - Radiology Data Radiology results: report reviewed (CT head), image reviewed (CT head) FINAL REPORT EXAM: CT HEAD/BRAIN WO CON HISTORY: syncope TECHNIQUE: CT of the head was performed without intravenous contrast. PRIORS: 12/17/2016. FINDINGS: The ventricles are normal in shape and position. The ventricles are nondilated. No intracranial hemorrhage, mass, mass effect, midline shift or evidence of acute ischemic infarct. The basilar cisterns are patent. Unchanged area of low attenuation in the left basal ganglia which may represent an old lacunar infarct versus prominent perivascular space. The paranasal sinuses are clear. The extracranial soft tissues demonstrate no abnormality. The calvarium is intact. The orbits are intact. The mastoid air cells are clear. IMPRESSION: No acute intracranial abnormality. Transcribed By: MG Dictated By: RICH MCKEON MD Electronically Authenticated By: RICH MCKEON MD Signed Date/Time: 08/26/171213 DD/ 13 TD/TT: 08/26/171213 - Differential Diagnosis syncope, anxiety, malingering, conversion disorder Critical care attestation.: If time is entered above; I have spent that time in minutes in the direct care of this critically ill patient, excluding procedure time. ED Disposition Clinical Impression: Syncope Disposition: DC-09 OP ADMIT IP TO THIS HOSP Is pt being admited?: Yes Does the pt Need Aspirin: Yes Condition: Fair Instructions: Syncope (ED) Referrals: PRIMARY CARE, [Primary Care Provider] - 3-5 Days Time of Disposition: 16:22 (hospitalist paged (Dr Jarrett))
[2017-08-26 15:01] LABS: Creatine Kinase 46 units/L (30-135)
[2017-08-26 15:09] LABS: Creatine Kinase MB < 1.0 ng/mL (0.0-4.0)
--- NOTE | 2017-08-26 16:18 | Cat Scan Report ---
FINAL REPORT EXAM: CT HEAD/BRAIN WO CON HISTORY: syncope TECHNIQUE: CT of the head was performed without intravenous contrast. PRIORS: 12/17/2016. FINDINGS: The ventricles are normal in shape and position. The ventricles are nondilated. No intracranial hemorrhage, mass, mass effect, midline shift or evidence of acute ischemic infarct. The basilar cisterns are patent. Unchanged area of low attenuation in the left basal ganglia which may represent an old lacunar infarct versus prominent perivascular space. The paranasal sinuses are clear. The extracranial soft tissues demonstrate no abnormality. The calvarium is intact. The orbits are intact. The mastoid air cells are clear. IMPRESSION: No acute intracranial abnormality.
[2017-08-26] MEDS ORDERED: ASPIRIN PO ONE (16:22)
[2017-08-26 16:25] LABS: Urine Drugs of Abuse Note Disclamer
[2017-08-26 16:40] LABS: Bilirubin,Urine NEG (Negative); Blood,Urine NEG (Negative); Ketones,Urine NEG (Negative); Leukocyte Esterase,Urine NEG (Negative); Nitrite,Urine NEG (Negative); Protein,Urine <15 mg/dL mg/dL (Negative); Urobilinogen,Urine < 2.0 mg/dL (<2.0); WBC,Urine < 1.0 /HPF (0.0-6.0)
--- NOTE | 2017-08-26 21:24 | History and Physical Report ---
History of Present Illness Date of examination: 08/26/17 Date of admission: 08/26/17 17:40 Chief complaint: CC Syncope this morning. History of present illness: [place]: 47 y/o female has been having dizziness for last 3 to 3 months.Has been feeling dizzy all the time.Passed out this am at 11o'clock.She felt Numb in face sweaty and whole walking to restroom to get help from her she passed out.Apparently she was twitchimng in her Rt UE when she passed out.Patient says she passed out for 4 to 6 hrs.Has fullness in both ears.No Chest pain.no fever chills etc.no SOB Past History Past Medical History: hyperlipidemia, other (Chronic pain.) Past Surgical History: No surgical history Social history: no significant social history, , Lives alone, full code. denies: lives with family Family history: no significant family history. denies: CAD, cancer Medications and Allergies Allergies Allergy/AdvReac Type Severity Reaction Status Date / Time No Known Allergies Allergy Verified 12/17/16 17:57 Home Medications Medication Instructions Recorded Confirmed Last Taken Type Aspirin [Aspirin TAB] 325 mg PO QDAY #30 tablet 11/07/16 Unknown Rx HYDROcodone/APAP 5-325 [[place] 2 each PO Q6H PRN #30 tablet 11/07/16 Unknown Rx 5-325 mg TAB] Simvastatin [Zocor TAB] 20 mg PO QHS #30 tablet 11/07/16 Unknown Rx Simvastatin [Zocor TAB] 20 mg PO QHS #30 tablet 12/18/16 Unknown Rx traMADol [Ultram 50 MG tab] 50 mg PO Q6HR PRN #14 tablet 12/18/16 Unknown Rx Review of Systems All systems: negative Constitutional: no weight loss, no weight gain, no fever, no chills, no sweats, no night sweats Ears, nose, mouth and throat: tinnitis, nasal congestion, sinus pressure, no hoarseness, no sore throat, no swelling in mouth, no swelling in throat Cardiovascular: no chest pain, no orthopnea, no palpitations, no rapid/ irregular heart beat, no edema, no syncope, no lightheadedness, no shortness of breath Respiratory: no cough, no cough with sputum, no excessive sputum, no hemoptysis , no shortness of breath, no dyspnea on exertion Gastrointestinal: no abdominal pain, no vomiting, no diarrhea, no constipation, no change in bowel habits, no hematemesis Genitourinary Female: no pelvic pain, no flank pain, no menorrhagia, no dysuria , no urinary frequency, no urgency Rectal: no pain, no incontinence, no bleeding Musculoskeletal: no neck stiffness, no shooting arm pain, no arm numbness/ tingling, no low back pain, no shooting leg pain, no leg numbness/tingling, no redness of joints Integumentary: no rash Neurological: numbness (Rt Face), ataxia, no head injury Psychiatric: no anxiety, no memory loss, no change in sleep habits, no sleep disturbances Endocrine: no heat intolerance, no polyphagia, no excessive thirst, no polydipsia, no polyuria, no nocturia, no excessive sweating, no flushing, no weight change Hematologic/Lymphatic: no easy bruising, no easy bleeding Allergic/Immunologic: no urticaria, no allergic rhinitis, no wheezing Exam - Constitutional Vitals: Temp Pulse Resp BP Pulse Ox 98.8 F 89 20 118/71 99 08/26/17 19:16 08/26/17 19:45 08/26/17 19:45 08/26/17 19:45 08/26/17 19:16 General appearance: Present: no acute distress, well-nourished - EENT Eyes: Present: PERRL ENT: hearing intact, clear oral mucosa - Neck Neck: Present: supple, normal ROM - Respiratory Respiratory effort: normal Respiratory: bilateral: CTA - Cardiovascular Heart rate: 70 Rhythm: regular Heart Sounds: Present: S1 & S2. Absent: rub, click - Extremities Extremities: pulses symmetrical, No edema Peripheral Pulses: within normal limits - Abdominal General gastrointestinal: Present: soft, non-tender, non-distended, normal bowel sounds Female genitourinary: Present: normal - Integumentary Integumentary: Present: clear, warm, dry - Musculoskeletal Musculoskeletal: gait normal, strength equal bilaterally - Psychiatric Psychiatric: appropriate mood/affect, intact judgment & insight - Neurologic Neurologic: CNII-XII intact, moves all extremities - Allied Health Allied health notes reviewed: nursing, case management Results - Labs CBC & Chem 7: 08/27/17 05:10 08/27/17 05:10 Labs: Laboratory Last Values WBC 7.2 K/mm3 (4.5-11.0) 08/26/17 13:47 RBC 4.52 M/mm3 (3.65-5.03) 08/26/17 13:47 Hgb 13.5 gm/dl (10.1-14.3) 08/26/17 13:47 Hct 38.6 % (30.3-42.9) 08/26/17 13:47 MCV 85 fl (79-97) 08/26/17 13:47 MCH 30 pg (28-32) 08/26/17 13:47 MCHC 35 % (30-34) H 08/26/17 13:47 RDW 14.1 % (13.2-15.2) 08/26/17 13:47 Plt Count 272 K/mm3 (140-440) 08/26/17 13:47 Lymph % (Auto) 23.8 % (13.4-35.0) 08/26/17 13:47 [place] % (Auto) 5.3 % (0.0-7.3) 08/26/17 13:47 Eos % (Auto) 0.6 % (0.0-4.3) 08/26/17 13:47 Baso % (Auto) 0.3 % (0.0-1.8) 08/26/17 13:47 Lymph # 1.7 K/mm3 (1.2-5.4) 08/26/17 13:47 [place] # 0.4 K/mm3 (0.0-0.8) 08/26/17 13:47 Eos # 0.0 K/mm3 (0.0-0.4) 08/26/17 13:47 Baso # 0.0 K/mm3 (0.0-0.1) 08/26/17 13:47 Seg Neutrophils % 70.0 % (40.0-70.0) 08/26/17 13:47 Seg Neutrophils # 5.0 K/mm3 (1.8-7.7) 08/26/17 13:47 Sodium 140 mmol/L (137-145) 08/26/17 13:47 Potassium 3.7 mmol/L (3.6-5.0) 08/26/17 13:47 Chloride 99.7 mmol/L (98-107) 08/26/17 13:47 Carbon Dioxide 24 mmol/L (22-30) 08/26/17 13:47 Anion Gap 20 mmol/L 08/26/17 13:47 BUN 9 mg/dL (7-17) 08/26/17 13:47 Creatinine 0.6 mg/dL (0.7-1.2) L 08/26/17 13:47 Estimated GFR > 60 ml/min 08/26/17 13:47 BUN/Creatinine Ratio 15 % 08/26/17 13:47 Glucose 147 mg/dL (65-100) H 08/26/17 13:47 Lactic Acid 0.70 mmol/L (0.7-2.0) 08/26/17 16:22 Calcium 9.1 mg/dL (8.4-10.2) 08/26/17 13:47 Magnesium 2.10 mg/dL (1.7-2.3) 08/26/17 13:47 Total Bilirubin 0.30 mg/dL (0.1-1.2) 08/26/17 13:47 AST 13 units/L (5-40) 08/26/17 13:47 ALT 12 units/L (7-56) 08/26/17 13:47 Alkaline Phosphatase 104 units/L (35-129) 08/26/17 13:47 Total Creatine Kinase 46 units/L (30-135) 08/26/17 13:47 CK-MB (CK-2) < 1.0 ng/mL (0.0-4.0) 08/26/17 13:47 CK-MB (CK-2) Rel Index 2.1 (0-4) 08/26/17 13:47 Troponin T < 0.010 ng/mL (0.00-0.029) 08/26/17 13:47 Total Protein 7.8 g/dL (6.3-8.2) 08/26/17 13:47 Albumin 4.4 g/dL (3.9-5) 08/26/17 13:47 Albumin/Globulin Ratio 1.3 % 08/26/17 13:47 TSH 0.435 mlU/mL (0.270-4.200) 08/26/17 13:47 Urine Color Yellow (Yellow) 08/26/17 15:30 Urine Turbidity Clear (Clear) 08/26/17 15:30 Urine pH 7.0 (5.0-7.0) 08/26/17 15:30 Ur Specific [place] 1.008 (1.003-1.030) 08/26/17 15:30 Urine Protein <15 mg/dl mg/dL (Negative) 08/26/17 15:30 Urine Glucose (UA) Neg mg/dL (Negative) 08/26/17 15:30 Urine Ketones Neg mg/dL (Negative) 08/26/17 15:30 Urine Blood Neg (Negative) 08/26/17 15:30 Urine Nitrite Neg (Negative) 08/26/17 15:30 Urine Bilirubin Neg (Negative) 08/26/17 15:30 Urine Urobilinogen < 2.0 mg/dL (<2.0) 08/26/17 15:30 Ur Leukocyte Esterase Neg (Negative) 08/26/17 15:30 Urine WBC (Auto) < 1.0 /HPF (0.0-6.0) 08/26/17 15:30 Urine RBC (Auto) 3.0 /HPF (0.0-6.0) 08/26/17 15:30 U Epithel Cells (Auto) 1.0 /HPF (0-13.0) 08/26/17 15:30 Salicylates < 0.3 mg/dL (2.8-20.0) L 08/26/17 13:47 Urine Opiates Screen Presumptive negative 08/26/17 16:15 Urine Methadone Screen Presumptive negative 08/26/17 16:15 Acetaminophen < 15.0 ug/mL (10.0-30.0) 08/26/17 13:47 Ur Barbiturates Screen Presumptive negative 08/26/17 16:15 Ur Phencyclidine Scrn Presumptive negative 08/26/17 16:15 Ur Amphetamines Screen Presumptive negative 08/26/17 16:15 U Benzodiazepines Scrn Presumptive negative 08/26/17 16:15 Urine Cocaine Screen Presumptive negative 08/26/17 16:15 U Marijuana (THC) Screen Presumptive positive 08/26/17 16:15 Drugs of Abuse Note Disclamer 08/26/17 16:15 Plasma/Serum Alcohol < 0.01 gm% (0-0.07) 08/26/17 13:47 Short CBC 08/27/17 Range/Units 05:10 WBC 6.2 (4.5-11.0) K/mm3 Hgb 11.5 (10.1-14.3) gm/dl Hct 34.3 (30.3-42.9) % Plt Count 243 (140-440) K/mm3 BMP 08/27/17 05:10 Sodium 140 Potassium 3.2 L Chloride 102.8 Carbon Dioxide 25 BUN 10 Creatinine 0.5 L Glucose 98 Calcium 8.2 L Liver Function 08/27/17 Range/Units 05:10 Total Bilirubin 0.20 (0.1-1.2) mg/dL AST 11 (5-40) units/L ALT 9 (7-56) units/L Alkaline Phosphatase 86 (35-129) units/L Albumin 3.6 L (3.9-5) g/dL Urine 08/26/17 Range/Units 15:30 Urine Color Yellow (Yellow) Urine pH 7.0 (5.0-7.0) Ur Specific [place] 1.008 (1.003-1.030) Urine Protein <15 mg/dl (Negative) mg/dL Urine Glucose (UA) Neg (Negative) mg/dL - Imaging and Cardiology EKG: report reviewed Assessment and Plan - Patient Problems (1) Syncope Current Visit: Yes Status: Acute Qualifiers: Syncope type: unspecified Qualified Code(s): R55 - Syncope and collapse Plan to address problem: CDS pending Echo and Lexiscan ordered (2) Labyrinthitis of right ear Current Visit: Yes Status: Acute Plan to address problem: On Meclizine 12.5m,g po q8h (3) Rt facial numbness Current Visit: No Status: Acute Plan to address problem: Etio unclear (4) HLD (hyperlipidemia) Current Visit: Yes Status: Chronic Qualifiers: Hyperlipidemia type: mixed hyperlipidemia Qualified Code(s): E78.2 - Mixed hyperlipidemia Plan to address problem: cont statins (5) DVT prophylaxis Current Visit: Yes Status: Acute Plan to address problem: On Lovenox
[2017-08-26] MEDS ORDERED: ULTRAM PO PRN (21:25)
[2017-08-26] MEDS ORDERED: DULCOLAX PR PRN (21:26)
[2017-08-26] MEDS ORDERED: MORPHINE IV PRN (21:26)
[2017-08-26] MEDS ORDERED: MILK OF MAGNESIA PO PRN (21:26)
[2017-08-26] MEDS ORDERED: TYLENOL PO PRN (21:26)
[2017-08-26] MEDS ORDERED: ZOFRAN IV PRN (21:26)
[2017-08-26] MEDS ORDERED: PERCOCET 5/325 PO PRN (21:26)
[2017-08-26] MEDS ORDERED: D5NS 1,000 ML IV SCH (22:00)
[2017-08-26] MEDS: AMBIEN PO PRN (23:02)
[2017-08-26] MEDS: PRAVACHOL PO SCH (23:14)
[2017-08-27 06:40] LABS: Basophils % (Auto) 0.3 % (0.0-1.8); Eosinophils % (Auto) 1.5 % (0.0-4.3); Hematocrit 34.3 % (30.3-42.9); Hemoglobin 11.5 gm/dl (10.1-14.3); Mean Corpuscular HGB Conc 34 % (30-34); Mean Corpuscular Hemoglobin 29 pg (28-32); Mean Corpuscular Volume 87 fl (79-97); Platelet Count 243 K/mm3 (140-440); Red Blood Count 3.95 M/mm3 (3.65-5.03); Red Cell Distribution Width 14.1 % (13.2-15.2); White Blood Count 6.2 K/mm3 (4.5-11.0)
[2017-08-27 06:54] LABS: Alanine Aminotransferase 9 units/L (7-56); Albumin 3.6 g/dL (3.9-5); Albumin/Globulin Ratio 1.3 %; Alkaline Phosphatase 86 units/L (35-129); Anion Gap 15 mmol/L; BUN/Creatinine Ratio 20; Blood Urea Nitrogen 10 mg/dL (7-17); Calcium 8.2 mg/dL (8.4-10.2); Carbon Dioxide 25 mmol/L (22-30); Chloride 102.8 mmol/L (98-107); Glucose 98 mg/dL (65-100); Potassium 3.2 mmol/L (3.6-5.0); Sodium 140 mmol/L (137-145); Total Protein 6.3 g/dL (6.3-8.2)
[2017-08-27] MEDS: ASPIRIN PO SCH (11:34)
[2017-08-27] MEDS: NORCO 5/325 PO PRN ×2 (11:34→18:03)
--- NOTE | 2017-08-27 16:25 | Progress Note ---
Assessment and Plan - Patient Problems (1) Syncope Current Visit: Yes Status: Acute Qualifiers: Syncope type: unspecified Qualified Code(s): R55 - Syncope and collapse Plan to address problem: CDS 50 to 79 percent ICA stenosis._significant??/ Echo and Lexiscan ordered (2) Labyrinthitis of right ear Current Visit: Yes Status: Acute Plan to address problem: On Meclizine 12.5m,g po q8h (3) Rt facial numbness Current Visit: No Status: Acute Plan to address problem: [place] unclear (4) HLD (hyperlipidemia) Current Visit: Yes Status: Chronic Qualifiers: Hyperlipidemia type: mixed hyperlipidemia Qualified Code(s): E78.2 - Mixed hyperlipidemia Plan to address problem: cont statins (5) DVT prophylaxis Current Visit: Yes Status: Acute Plan to address problem: On Lovenox Subjective Date of service: 08/27/17 Principal diagnosis: Syncope Interval history: Still feels dizzy and rt facuak numbness Objective - Constitutional Vitals: Vital Signs - 12hr 08/27/17 08/27/17 08/27/17 04:38 08:31 08:33 Temperature 98.3 F 98.8 F Pulse Rate 75 81 80 Respiratory 18 18 Rate Blood Pressure 108/63 102/66 105/59 Blood Pressure [Left] O2 Sat by Pulse 98 100 99 Oximetry 08/27/17 08/27/17 08/27/17 09:24 12:00 12:56 Temperature 98.3 F 98.3 F Pulse Rate 76 79 18 L Respiratory 18 Rate Blood Pressure Blood Pressure 105/59 127/71 [Left] O2 Sat by Pulse Oximetry General appearance: Present: no acute distress, well-nourished - EENT Eyes: PERRL, EOM intact ENT: hearing intact, clear oral mucosa Ears: bilateral: normal - Neck Neck: supple, normal ROM - Respiratory Respiratory effort: normal Respiratory: bilateral: CTA - Breasts Breasts: normal - Cardiovascular Rhythm: regular Heart Sounds: Present: S1 & S2. Absent: gallop, rub Extremities: pulses intact, No edema, normal color, Full ROM - Gastrointestinal General gastrointestinal: Present: soft, non-tender, non-distended, normal bowel sounds - Genitourinary Female genitourinary: normal - Integumentary Integumentary: clear, warm, dry - Musculoskeletal Musculoskeletal: 1, strength equal bilaterally - Neurologic Neurologic: moves all extremities - Psychiatric Psychiatric: memory intact, appropriate mood/affect, intact judgment & insight - Labs CBC & Chem 7: 08/27/17 05:10 08/27/17 05:10 Labs: Abnormal lab results 08/27/17 08/27/17 Range/Units 05:10 05:10 Lymph % (Auto) 35.3 H (13.4-35.0) % [place] % (Auto) 8.3 H (0.0-7.3) % Potassium 3.2 L (3.6-5.0) mmol/L Creatinine 0.5 L (0.7-1.2) mg/dL Calcium 8.2 L (8.4-10.2) mg/dL Albumin 3.6 L (3.9-5) g/dL
[2017-08-27] MEDS ORDERED: ANTIVERT PO PRN (16:29)
[2017-08-27] MEDS ORDERED: K-DUR PO ONE (17:10)
[2017-08-27] MEDS ORDERED: ATIVAN IV ONE (23:18)
[2017-08-27] MEDS: PRAVACHOL PO SCH (23:38)
[2017-08-28] MEDS: AMBIEN PO PRN ×2 (01:52→20:52)
[2017-08-28] MEDS ORDERED: LEXISCAN IV ONE ×2 (09:21→09:23)
--- NOTE | 2017-08-28 12:03 | Magnetic Resonance Report ---
MRI OF THE BRAIN WITHOUT CONTRAST: HISTORY: Right facial numbness PROCEDURE: Multiplanar, multisequence MR imaging of the brain without IV contrast was performed. FINDINGS: The brain parenchyma signal intensity and its willoughby white interface are within normal limits on all sequences. No evidence for acute ischemia, hemorrhage or mass. No chronic infarct or extra-axial fluid collection. The midline structures are central. The basal cisterns are patent. Normal ventricular size. The orbital cavities and sella turcica demonstrate no abnormality. The visualized paranasal sinuses and mastoid air cells are well aerated. IMPRESSION: Unremarkable non-enhanced MRI of the brain. No significant change since 11/05/16.
[2017-08-28] MEDS: ASPIRIN PO SCH (12:06)
--- NOTE | 2017-08-28 14:28 | Consultation ---
History of Present Illness - Reason for Consult Consult date: 08/28/17 Carotid Stenosis Requesting physician: BEATA CURRIE - History of Present Illness The patient is a 47-year-old female who presents to the hospital with complaints of a syncopal episode. She states that she has had what she describes as to TIAs and was started on a statin and antiplatelet therapy which she was fairly noncompliant with. She also complains of constant facial numbness and a previous syncopal episode that was precipitated by a tight hug from a family member. She also describes occasional hand pain and tingling with use of her right arm. She denies any lower extremity numbness. She is a current smoker. She had a previous carotid duplex in October and a current carotid duplex during this admission which both demonstrate 50-79% of the right internal carotid artery and <50% of the left internal carotid artery. Past History Past Medical History: hyperlipidemia, other (Chronic pain.) Past Surgical History: No surgical history Social history: , lives with family, smoking, full code Family history: diabetes, hypertension, other (renal failure on dialysis) Medications and Allergies Allergies Allergy/AdvReac Type Severity Reaction Status Date / Time No Known Allergies Allergy Verified 12/17/16 17:57 Home Medications Medication Instructions Recorded Confirmed Last Taken Type Aspirin [Aspirin TAB] 325 mg PO QDAY #30 tablet 11/07/16 Unknown Rx HYDROcodone/APAP 5-325 [[place] 2 each PO Q6H PRN #30 tablet 11/07/16 Unknown Rx 5-325 mg TAB] Simvastatin [Zocor TAB] 20 mg PO QHS #30 tablet 11/07/16 Unknown Rx Simvastatin [Zocor TAB] 20 mg PO QHS #30 tablet 12/18/16 Unknown Rx traMADol [Ultram 50 MG tab] 50 mg PO Q6HR PRN #14 tablet 12/18/16 Unknown Rx Active Meds: Active Medications Acetaminophen (Tylenol) 650 mg PO Q4H PRN PRN Reason: Pain MILD(1-3)/Fever >100.5/MARTINEZ Last Admin: 08/27/17 23:51 Dose: 650 mg Acetaminophen/Hydrocodone Bitart ([place] 5/325) 2 each PO Q6H PRN PRN Reason: Pain, Moderate (4-6) Last Admin: 08/27/17 18:03 Dose: 2 each Aspirin (Aspirin) 325 mg PO QDAY BRITTANI Last Admin: 08/28/17 12:06 Dose: 325 mg Bisacodyl (Dulcolax) 10 mg [place] QDAY PRN PRN Reason: Constipation unrelieved by MOM Magnesium Hydroxide (Milk Of Magnesia) 30 ml PO Q4H PRN PRN Reason: Constipation Meclizine HCl (Antivert) 12.5 mg PO Q12H PRN PRN Reason: Vertigo Morphine Sulfate (Morphine) 2 mg IV Q4H PRN PRN Reason: Pain, Moderate (4-6) Ondansetron HCl (Zofran) 4 mg IV Q8H PRN PRN Reason: N/V unrelieved by Reglan Oxycodone/Acetaminophen (Percocet 5/325) 1 tab PO Q6H PRN PRN Reason: Pain, Moderate (4-6) Pravastatin Sodium (Pravachol) 40 mg PO QHS [facility] Last Admin: 08/27/17 23:38 Dose: 40 mg Zolpidem Tartrate (Ambien) 5 mg PO QHS PRN PRN Reason: Sleep Last Admin: 08/28/17 01:52 Dose: 5 mg Review of Systems Constitutional: no weight loss, no sweats, no night sweats, no anorexia Eyes: bilateral: blurred vision Ears, nose, mouth and throat: tinnitis Breasts: deferred Cardiovascular: syncope, lightheadedness, no chest pain, no orthopnea, no palpitations, no dyspnea on exertion, no paroxysmal nocturnal dyspnea Respiratory: no cough, no excessive sputum, no shortness of breath Gastrointestinal: no abdominal pain, no vomiting, no coffee ground emesis Genitourinary Female: no dyspareunia, no flank pain, no menorrhagia Menstruation: no currently menstrual, no premenarcheal, no ammenorrhea on BC Rectal: no pain, no incontinence, no bleeding, no itching, no hemorrhoids Musculoskeletal: no neck stiffness, no neck pain, no shooting arm pain Integumentary: no deferred, no rash Neurological: numbness (right hand), no head injury, no transient paralysis Psychiatric: anxiety Exam - Constitutional Vitals: Temp Pulse Resp BP Pulse Ox 98.6 F 78 18 106/63 99 08/28/17 07:28 08/28/17 07:28 08/28/17 07:28 08/28/17 07:28 08/28/17 07:28 General appearance: Present: no acute distress - Neck Neck: Present: supple - Respiratory Respiratory effort: normal - Cardiovascular Rhythm: regular - Extremities Extremities: no ischemia Extremity abnormal: pulses diminished (right radial pulse) - Abdominal General gastrointestinal: Present: soft, non-tender, non-distended - Rectal Rectal Exam: deferred - Integumentary Integumentary: Present: clear - Musculoskeletal Musculoskeletal: strength equal bilaterally Results - Labs CBC & Chem 7: 08/27/17 05:10 08/27/17 05:10 - Imaging and Cardiology MRI - head: report reviewed Venous US: other (carotid duplex films reviewed) Assessment and Plan The patient is a 47 year old female with a history of carotid artery stenosis. Her symptoms are not consistent with TIA. She has an MRI that does not reveal acute CVA. Her ECHO is negavtive for a cardiac abnormality. Review of her carotid duplex reveals significant plaque in the right common carotid and right subclavian artery which may indicate significant innominate artery plaque. She has a diminished right radial pulse. Will order a CTA of her chest and neck to evaluate the great vessels. Additionally will order CRP and Erythrocyte Sedimentation Rate to evaluate for possible inflammation and possible vasculitis.
--- NOTE | 2017-08-28 19:30 | Progress Note ---
Assessment and Plan Assessment and plan: 47 yo female, smoker, with hyperlipidemia, presented for constant dizziness, facial numbness, hyperesthesia, ringing in the ear, episodes of altered sensorium; she describes episodes of shaking like seizure activity, but there is no postictal state and she is aware of surroundings during these episodes; of note, she is grieving after her mother's recent for which she cared a couple of years (her mother had narcotics/psychotropic medications abuse/ dependence along with multiple chronic medical conditions) 1. Questionable syncope/?TIA Cardiac ischemic evaluation (echocardiogram and stress test) pending Carotid Doppler revealed R ICA 50-79% stenosis and <50% on L Vascular surgery consulted and plans to obtain MRA chest and neck to better assess great vessels 2. Questionable seizure-like activity Patient aware about her surroundings during these episodes, no postictal state Concern for pseudoseizures/conversion disorder Will consult neurology and psychiatry 3. ? Ringing in the ears/vertigo/labyrinthitis right ear Trial of meclizine Await neuro input 4. Grief/depression Seems to be depressed, but not admitting, actually denying Willl ask psychiatry to evaluate 5. Hyperlipidemia Statin 6. DVT prophylaxis Hospitalist Physical - Constitutional Vitals: Temp Pulse Resp BP Pulse Ox 98.6 F 78 18 106/63 99 08/28/17 07:28 08/28/17 07:28 08/28/17 07:28 08/28/17 07:28 08/28/17 07:28 General appearance: Present: no acute distress Results - Labs CBC & Chem 7: 08/27/17 05:10 08/29/17 05:56 Labs: Laboratory Last Values WBC 6.2 K/mm3 (4.5-11.0) 08/27/17 05:10 RBC 3.95 M/mm3 (3.65-5.03) 08/27/17 05:10 Hgb 11.5 gm/dl (10.1-14.3) 08/27/17 05:10 Hct 34.3 % (30.3-42.9) 08/27/17 05:10 MCV 87 fl (79-97) 08/27/17 05:10 MCH 29 pg (28-32) 08/27/17 05:10 MCHC 34 % (30-34) 08/27/17 05:10 RDW 14.1 % (13.2-15.2) 08/27/17 05:10 Plt Count 243 K/mm3 (140-440) 08/27/17 05:10 Lymph % (Auto) 35.3 % (13.4-35.0) H 08/27/17 05:10 [place] % (Auto) 8.3 % (0.0-7.3) H 08/27/17 05:10 Eos % (Auto) 1.5 % (0.0-4.3) 08/27/17 05:10 Baso % (Auto) 0.3 % (0.0-1.8) 08/27/17 05:10 Lymph # 2.2 K/mm3 (1.2-5.4) 08/27/17 05:10 [place] # 0.5 K/mm3 (0.0-0.8) 08/27/17 05:10 Eos # 0.1 K/mm3 (0.0-0.4) 08/27/17 05:10 Baso # 0.0 K/mm3 (0.0-0.1) 08/27/17 05:10 Seg Neutrophils % 54.6 % (40.0-70.0) 08/27/17 05:10 Seg Neutrophils # 3.4 K/mm3 (1.8-7.7) 08/27/17 05:10 ESR 15 mm/Hr (0-20) 08/28/17 15:00 Sodium 140 mmol/L (137-145) 08/27/17 05:10 Potassium 3.2 mmol/L (3.6-5.0) L 08/27/17 05:10 Chloride 102.8 mmol/L (98-107) 08/27/17 05:10 Carbon Dioxide 25 mmol/L (22-30) 08/27/17 05:10 Anion Gap 15 mmol/L 08/27/17 05:10 BUN 10 mg/dL (7-17) 08/27/17 05:10 Creatinine 0.5 mg/dL (0.7-1.2) L 08/27/17 05:10 Estimated GFR > 60 ml/min 08/27/17 05:10 BUN/Creatinine Ratio 20 % 08/27/17 05:10 Glucose 98 mg/dL (65-100) 08/27/17 05:10 Lactic Acid 0.70 mmol/L (0.7-2.0) 08/26/17 16:22 Calcium 8.2 mg/dL (8.4-10.2) L 08/27/17 05:10 Magnesium 2.10 mg/dL (1.7-2.3) 08/26/17 13:47 Total Bilirubin 0.20 mg/dL (0.1-1.2) 08/27/17 05:10 AST 11 units/L (5-40) 08/27/17 05:10 ALT 9 units/L (7-56) 08/27/17 05:10 Alkaline Phosphatase 86 units/L (35-129) 08/27/17 05:10 Total Creatine Kinase 46 units/L (30-135) 08/26/17 13:47 CK-MB (CK-2) < 1.0 ng/mL (0.0-4.0) 08/26/17 13:47 CK-MB (CK-2) Rel Index 2.1 (0-4) 08/26/17 13:47 Troponin T < 0.010 ng/mL (0.00-0.029) 08/26/17 13:47 C-Reactive Protein 0.10 mg/dL (0.00-1.30) 08/28/17 15:00 Total Protein 6.3 g/dL (6.3-8.2) 08/27/17 05:10 Albumin 3.6 g/dL (3.9-5) L 08/27/17 05:10 Albumin/Globulin Ratio 1.3 % 08/27/17 05:10 TSH 0.435 mlU/mL (0.270-4.200) 08/26/17 13:47 Urine Color Yellow (Yellow) 08/26/17 15:30 Urine Turbidity Clear (Clear) 08/26/17 15:30 Urine pH 7.0 (5.0-7.0) 08/26/17 15:30 Ur Specific [place] 1.008 (1.003-1.030) 08/26/17 15:30 Urine Protein <15 mg/dl mg/dL (Negative) 08/26/17 15:30 Urine Glucose (UA) Neg mg/dL (Negative) 08/26/17 15:30 Urine Ketones Neg mg/dL (Negative) 08/26/17 15:30 Urine Blood Neg (Negative) 08/26/17 15:30 Urine Nitrite Neg (Negative) 08/26/17 15:30 Urine Bilirubin Neg (Negative) 08/26/17 15:30 Urine Urobilinogen < 2.0 mg/dL (<2.0) 08/26/17 15:30 Ur Leukocyte Esterase Neg (Negative) 08/26/17 15:30 Urine WBC (Auto) < 1.0 /HPF (0.0-6.0) 08/26/17 15:30 Urine RBC (Auto) 3.0 /HPF (0.0-6.0) 08/26/17 15:30 U Epithel Cells (Auto) 1.0 /HPF (0-13.0) 08/26/17 15:30 Salicylates < 0.3 mg/dL (2.8-20.0) L 08/26/17 13:47 Urine Opiates Screen Presumptive negative 08/26/17 16:15 Urine Methadone Screen Presumptive negative 08/26/17 16:15 Acetaminophen < 15.0 ug/mL (10.0-30.0) 08/26/17 13:47 Ur Barbiturates Screen Presumptive negative 08/26/17 16:15 Ur Phencyclidine Scrn Presumptive negative 08/26/17 16:15 Ur Amphetamines Screen Presumptive negative 08/26/17 16:15 U Benzodiazepines Scrn Presumptive negative 08/26/17 16:15 Urine Cocaine Screen Presumptive negative 08/26/17 16:15 U Marijuana (THC) Screen Presumptive positive 08/26/17 16:15 Drugs of Abuse Note Disclamer 08/26/17 16:15 Plasma/Serum Alcohol < 0.01 gm% (0-0.07) 08/26/17 13:47
--- NOTE | 2017-08-28 20:29 | Cat Scan Report ---
FINAL REPORT PROCEDURE: CT ANGIO NECK TECHNIQUE: Computerized tomographic angiography of the neck was performed after the IV injection of iodinated nonionic contrast including image processing. The image data was postprocessed using 2-dimensional multiplanar reformatted (MPR) and 3-dimensional (MIP and/or volume rendered) techniques. HISTORY: Stenosis subclavian/carotid arteries COMPARISON: No prior studies are available for comparison. Note: Assessment of carotid artery stenosis is based on measurement of the distal internal carotid artery diameter as the denominator for stenosis calculations and the [place] Symptomatic Carotid Endarterectomy Trial (NASCET) stenosis criteria . CPT 3100F FINDINGS: Deformity of the medial wall of the right orbit is likely from prior fracture. Parotid and submandibular glands display no abnormalities. Thyroid gland is normal in size. Mild reactive cervical lymph nodes are seen. Vertebral arteries are codominant. No vertebral artery stenosis is seen. There is stenosis is seen in the common carotid arteries. In the origin of the right ICA, there is mild noncalcified plaque causing less than 10 percent stenosis. Small focus of calcified plaque is seen in the supraclinoid portion of the distal right ICA causing no significant stenosis. No stenosis is seen in the left carotid bifurcation or left ICA in the neck. IMPRESSION: Mild stenoses are seen in the origin of the right ICA and the supraclinoid portion of the right ICA. No areas of significant stenosis are seen.
[2017-08-28] MEDS ORDERED: K-DUR PO ONE (20:33)
[2017-08-28] MEDS: NORCO 5/325 PO PRN (20:52)
[2017-08-29] MEDS: PRAVACHOL PO SCH ×2 (00:22→23:10)
--- NOTE | 2017-08-29 01:19 | Treadmill Report ---
REASON FOR STUDY: Syncope. IMAGING PROTOCOL: The patient received 10 mCi of Technetium 99m Tetrofosmin for resting image and 28 mCi of Technetium 99m Tetrofosmin for stress imaging. The imaging for the whole procedure was completed 30-90 minutes following the initial injection of Technetium 99m tetrofosmin. The SPECT imaging in the 180 degree arc was performed in the right anterior oblique projection. Computerized reconstruction of the images was performed for analysis. IMAGING RESULTS: Normal cavity size from stress to rest. Normal distribution of radionuclide in the anterior, inferior, septal, and apical regions. Gated SPECT, EF 65% with no wall motion abnormity. The patient exercised on Chencho protocol for 8 minutes 30 seconds. The patient had no EKG changes suggestive of ischemia and no exaggerated BP. The patient achieved 100% max predicted heart rate. SUMMARY: 1. Negative treadmill EKG. 2. Good exercise capacity 8-1/2 minutes of Chencho protocol. 3. There was no exaggerated BP response to exercise. 4. Normal rest and stress myocardial perfusion scan. No significant stress ischemia. No wall motion abnormality. Gated SPECT, EF greater than 65%. JOB# [id number] FOUZIA/NAEEM
[2017-08-29 06:41] LABS: Anion Gap 16 mmol/L; BUN/Creatinine Ratio 20; Blood Urea Nitrogen 8 mg/dL (7-17); Calcium 8.8 mg/dL (8.4-10.2); Carbon Dioxide 25 mmol/L (22-30); Chloride 102.9 mmol/L (98-107); Glucose 99 mg/dL (65-100); Sodium 140 mmol/L (137-145)
[2017-08-29 06:44] LABS: Potassium 3.9 mmol/L (3.6-5.0)
--- NOTE | 2017-08-29 09:09 | History and Physical Report ---
History of Present Illness Date of examination: 08/29/17 Date of admission: 08/26/17 17:40 Chief complaint: NEUROLOGY CONSULT NOTE CC: I am asked to see this 47 F mother of three for eval of constant dysequilibrium since Oct 2016, and episodes of altered behavior beginning Sat . HPI: In general, the patient has enjoyed reasonable health. In this setting in October 2016 she experience on awakening a numbenss, "pins and needles" feeling over the entire right side of her head and on her face to just below the right orbit. She also became "dizzy" meaning she experience then, and has always experienced 24/7 since then, a "swimmy" feeling of the environment moving 24/7 constantly no matter what she is doing. This persists whether she is lying down, sitting, standing up or walking. Nothing makes it worse or better. There have never been any headaches associated with this and she does not get headaches until this past week when she has had a global headache, mild to moderate, off an on, never one sided, never associated with nausea or vomiting. There has never been any photophobia. In pursuit of a possible Menier's disease diagnosis (my questioning), she does have a constant ringing in her Right ear but no fullness in that ear, and a feeling "like there is water" in her left ear with no ringing in that ear. No hearing loss in either ear. She has NO EPISODES, of violent vertigo, severe ear ringing with fullness, and no hearing loss as above that would be characteristic of Meniere's. No increase in Sx when she rolls over in bed, so not BPPV. Then, superimposed on the above, has been the history in May 2107 of being hugged by a cousin at a family gathering and feeling faint and fainting to the ground. And then, most recently, a mild to moderate generalized headache over the last several days (not localized). this past Sunday 08/26 she awoke at 8 am per usual, drank her one cup of coffee, went to the living room, sat down and watched TV, felt like she was going to faint. Got up, walked to the bathroom where her huband was and "fainted". He caught her, laid her down on the floor and yelled to his 9 year old son to call 911. The patient states that " I could hear everything that was being said" by her and son, by EMS, in the ED, and "I could feel my arms moving up and down and body moving up and down jerking". She could not see or talk however for "five to six hours". She also noted on Monday that while awake the whole right arm and right leg developed a tingling feeling, without any sensation of a march up or down her arm or leg. This she had not experienced before. She stated that this same sequence has occurred twice since she has been in the hospital, once after an imaging study with contrast. The CT head is normal (images reviewed) as is the MRI brain, no lacune or any pathology is seen. The CTA neck is also normal (images reviewed), and DO NOT show any significant stenosis, the report of the carotid doppler study to the contrary not withstanding. The CTA neck findings trump the ultrasound study hugely. The stress EKG study is normal, as is a 2D Echo study. Psychiatry evaluation is in progress. ROS: aside from the above, an 11 point ROS is negative. FH/SH not re-reviewed. she has a 27 year old son and a 24 year old daughter both out of the house and the 9 year old son at home. Her is a truck diver locally so he comes home at night. MEDS/ALLERGIES - see chart. EXAM: HEENT - nl, no trauma Neck - supple wo bruits Cor - no m, rubs Abd - soft, bs nl Extrem - no edema or trauma NEURO EXAM MS - alert, cooperative, oriented x 3, speech fluent and clear and without error , follows all commands quickly and accurately CN 2 - 12 nl, EOM full and without nystagmus, pupil both 4 mm diam and react to bright light stim MOT - nl strenght all four extrem prox and dist SENS - NORMAL TO TOUCH all four extrem and on both sides of face, (no dysesthetic sense complained of) CEREB - fnf nl bilat DTRs - 2+ and symm prox and dist all four extremities, both great toes downgoing to plantar stim. She did jerk her left arm up when I tested her right biceps jerk. She did rise partially up in bed with a couple of brief jerks when I tested her patellar reflexes, elaborated behavior. GAIT - not tested. DX IMP: 1. 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 NOT Seizures by hx , NOT simple syncope either, not convulsive syncope (SEE detailed hx above). Her history sounds strikingly self coached, with huge errors in it regarding the various initially considered diagnostic possibilites. 2. Constant sense of dysequilibrium of ? mechanism. NOT Meniere's by hx, not BPPV, not migrainous, not secondary to post fossa misadventure by MRI scanning. 3. Right facial dysesthesias and recent feeling of pins and needles in the right arm and leg (but no Hx of a migrainous march)...which COULD be of migrainous mechanism ...as rarely, persisent dysesthetic sx can last months ( but there is no antecedent hx of migraine) NOT HX OF TIA, STROKE. RECC: 1. I will get EEG today to complete neuro eval 2. Pursue Psych eval as you are doing - in progress. This IS a problem and patient needs help with it. 3. Stop the Meclizine. It is not helping, and is known to perpetuate dysequilibrim sx (by not letting the vestibular system adapt to the new norm at which point sx resolve). On an OPD basis, get audiograms, and a vestibular rehab program. 4. Go from there. Call as needed. Penelope Giang MD Past History Past Medical History: hyperlipidemia, other (Chronic pain.) Past Surgical History: No surgical history Social history: , lives with family, smoking, full code Family history: diabetes, hypertension, other (renal failure on dialysis) Medications and Allergies Allergies Allergy/AdvReac Type Severity Reaction Status Date / Time No Known Allergies Allergy Verified 12/17/16 17:57 Home Medications Medication Instructions Recorded Confirmed Last Taken Type Aspirin [Aspirin TAB] 325 mg PO QDAY #30 tablet 11/07/16 Unknown Rx HYDROcodone/APAP 5-325 [[place] 2 each PO Q6H PRN #30 tablet 11/07/16 Unknown Rx 5-325 mg TAB] Simvastatin [Zocor TAB] 20 mg PO QHS #30 tablet 11/07/16 Unknown Rx Simvastatin [Zocor TAB] 20 mg PO QHS #30 tablet 12/18/16 Unknown Rx traMADol [Ultram 50 MG tab] 50 mg PO Q6HR PRN #14 tablet 12/18/16 Unknown Rx Active Meds: Active Medications Acetaminophen (Tylenol) 650 mg PO Q4H PRN PRN Reason: Pain MILD(1-3)/Fever >100.5/MARTINEZ Last Admin: 08/27/17 23:51 Dose: 650 mg Acetaminophen/Hydrocodone Bitart ([place] 5/325) 2 each PO Q6H PRN PRN Reason: Pain, Moderate (4-6) Last Admin: 08/28/17 20:52 Dose: 2 each Aspirin (Aspirin) 325 mg PO QDAY [facility] Last Admin: 08/28/17 12:06 Dose: 325 mg Bisacodyl (Dulcolax) 10 mg [place] QDAY PRN PRN Reason: Constipation unrelieved by MOM Magnesium Hydroxide (Milk Of Magnesia) 30 ml PO Q4H PRN PRN Reason: Constipation Meclizine HCl (Antivert) 12.5 mg PO Q12H PRN PRN Reason: Vertigo Morphine Sulfate (Morphine) 2 mg IV Q4H PRN PRN Reason: Pain, Moderate (4-6) Ondansetron HCl (Zofran) 4 mg IV Q8H PRN PRN Reason: N/V unrelieved by Reglan Oxycodone/Acetaminophen (Percocet 5/325) 1 tab PO Q6H PRN PRN Reason: Pain, Moderate (4-6) Pravastatin Sodium (Pravachol) 40 mg PO QHS [facility] Last Admin: 08/29/17 00:22 Dose: 40 mg Zolpidem Tartrate (Ambien) 5 mg PO QHS PRN PRN Reason: Sleep Last Admin: 08/28/17 20:52 Dose: 5 mg Physical Examination - Vital Signs Vital Signs: Vital Signs Temp Pulse Resp BP Pulse Ox 98.6 F 100 H 18 143/83 100 08/26/17 13:27 08/26/17 13:27 08/26/17 13:27 08/26/17 13:27 08/26/17 13:27 Results - Laboratory Findings CBC and BMP: 08/27/17 05:10 08/29/17 05:56 Abnormal Lab Findings: Abnormal Labs 08/26/17 08/26/17 08/26/17 13:47 13:47 13:47 MCHC 35 H Lymph % (Auto) [place] % (Auto) Potassium Creatinine 0.6 L Glucose 147 H Calcium Albumin Salicylates < 0.3 L 08/27/17 08/27/17 08/29/17 05:10 05:10 05:56 MCHC Lymph % (Auto) 35.3 H [place] % (Auto) 8.3 H Potassium 3.2 L Creatinine 0.5 L 0.4 L Glucose Calcium 8.2 L Albumin 3.6 L Salicylates
[2017-08-29] MEDS: ASPIRIN PO SCH (10:19)
--- NOTE | 2017-08-29 11:57 | Progress Note ---
Subjective Date of service: 08/29/17 Principal diagnosis: Syncope Interval history: NEUROLOGY PROGRESS NOTE EEG today: Fairly well regulated 8 - 9 Hz background. Differentiated states of arousal are not identified. Stage II sleep not attained. The patient had no jerking motions during the procedure. IMP: Normal awake EEG. There is specifically no focal, lateralizing, or epileptiform abnormality. Neuro work up complete. Call as needed. Penelope Giang MD Objective - Vital Sign Vital Signs - 12hr 08/29/17 08/29/17 07:46 08:00 Temperature 98.1 F 99 F Pulse Rate 74 83 Respiratory 16 16 Rate Blood Pressure 99/52 Blood Pressure 107/68 [Left] O2 Sat by Pulse 96 Oximetry - Laboratory Findings CBC and BMP: 08/27/17 05:10 08/29/17 05:56 Abnormal Lab Findings: Abnormal Labs 08/26/17 08/26/17 08/26/17 13:47 13:47 13:47 MCHC 35 H Lymph % (Auto) [place] % (Auto) Potassium Creatinine 0.6 L Glucose 147 H Calcium Albumin Salicylates < 0.3 L 08/27/17 08/27/17 08/29/17 05:10 05:10 05:56 MCHC Lymph % (Auto) 35.3 H [place] % (Auto) 8.3 H Potassium 3.2 L Creatinine 0.5 L 0.4 L Glucose Calcium 8.2 L Albumin 3.6 L Salicylates
[2017-08-29] MEDS: NORCO 5/325 PO PRN ×2 (14:16→23:09)
--- NOTE | 2017-08-29 16:39 | Progress Note ---
Assessment and Plan Code Med called earlier and subsequently cx'd. CTA reviewed. No significant stenosis identified that requires surgical intervention at present. Recommend anti-platelet and statin therapies, medical optimization, and smoking cessation. Pt should have routine monitoring with annual carotid duplex. Gave the pt our card, to f/u with as an outpt. - Patient Problems (1) Carotid stenosis, asymptomatic Current Visit: Yes Status: Acute Subjective Date of service: 08/29/17 Principal diagnosis: Syncope Interval history: Pt awake without specific complaints at present. Objective - Constitutional Vitals: Vital Signs - 12hr 08/29/17 08/29/17 08/29/17 07:46 08:00 09:30 Temperature 98.1 F 99 F 98.3 F Pulse Rate 74 83 Respiratory 16 16 16 Rate Blood Pressure 99/52 120/70 Blood Pressure 107/68 [Left] O2 Sat by Pulse 96 Oximetry 08/29/17 15:28 Temperature 98.2 F Pulse Rate Respiratory 16 Rate Blood Pressure 101/52 Blood Pressure [Left] O2 Sat by Pulse Oximetry General appearance: Present: no acute distress - EENT Eyes: EOM intact ENT: hearing intact - Respiratory Respiratory effort: normal Extremities: no ischemia - Neurologic Neurologic: no focal deficits - Psychiatric Psychiatric: no appropriate mood/affect (tearful), intact judgment & insight, cooperative - Labs CBC & Chem 7: 08/27/17 05:10 08/29/17 05:56 Labs: Abnormal lab results 08/29/17 Range/Units 05:56 Creatinine 0.4 L (0.7-1.2) mg/dL
[2017-08-29] MEDS ORDERED: NACL ONE (18:02)
--- NOTE | 2017-08-29 18:52 | Cat Scan Report ---
FINAL REPORT PROCEDURE: CT ANGIO CHEST TECHNIQUE: Computerized tomographic angiography of the chest was performed after the IV injection of iodinated nonionic contrast including image processing. The image data was postprocessed using 2-dimensional multiplanar reformatted (MPR) and 3-dimensional (MIP and/or volume rendered) techniques. HISTORY: Stenosis subclavian/carotid arteries COMPARISON: No prior studies are available for comparison. FINDINGS: Mild hypoventilatory changes are seen in the dependent portions of the lungs. Borderline changes of CHF are seen. Very minimal pulmonary edema is not excluded. No pneumothorax or pleural effusion is seen. No mediastinal lymphadenopathy is seen. Thoracic aorta is normal in size without evidence of dissection. No pulmonary embolus is seen. No stenosis is seen in the brachiocephalic or subclavian arteries. No stenosis is seen of the origins of the CCAs or vertebral arteries. No cervical ribs are seen. IMPRESSION: Borderline changes of CHF are seen, and very minimal pulmonary edema is not excluded. No vascular stenosis is seen.
[2017-08-29] MEDS: AMBIEN PO PRN (19:28)
--- NOTE | 2017-08-29 22:24 | Progress Note ---
Assessment and Plan Assessment and plan: 47 yo female, smoker, with hyperlipidemia, presented for constant dizziness, facial numbness, hyperesthesia, ringing in the ear, episodes of altered sensorium; she describes episodes of shaking like seizure activity, but there is no postictal state and she is aware of surroundings during these episodes; of note, she is grieving after her mother's recent for which she cared a couple of years (her mother had narcotics/psychotropic medications abuse/ dependence along with multiple chronic medical conditions) 1. Questionable syncope/?TIA Cardiac ischemic evaluation (echocardiogram and stress test) pending Carotid Doppler revealed R ICA 50-79% stenosis and <50% on L Vascular surgery consulted, CTA chest obtained to better assess great vessels and no vascular stenosis identified; no intervention needed 2. Questionable seizure-like activity Patient aware about her surroundings during these episodes, no postictal state Concern for pseudoseizures/conversion disorder 3. ? Ringing in the ears/vertigo/labyrinthitis right ear 2&3 - Neurology consulted and diagnosed her with altered behavior of psychogenic cause, nonepileptic spells (EEG negative for seizure activity); recommended psychiatric evaluation and possible vestibular rehabilitation program if desequilibrum persists 4. Grief/depression Seems to be depressed, but not admitting, actually denying Awaiting psychiatry evaluation 5. Hyperlipidemia Statin 6. DVT prophylaxis History Interval history: no new issues, depressed Hospitalist Physical - Constitutional Vitals: Temp Pulse Resp BP Pulse Ox 98.2 F 83 16 101/52 96 08/29/17 15:28 08/29/17 08:00 08/29/17 15:28 08/29/17 15:28 08/29/17 07:46 General appearance: Present: no acute distress, well-nourished - EENT Eyes: Present: PERRL, EOM intact - Neck Neck: Present: supple, normal ROM. Absent: masses or JVD - Respiratory Respiratory effort: normal Respiratory: bilateral: CTA, negative: rales, wheezing - Cardiovascular Rhythm: regular Heart Sounds: Present: S1 & S2. Absent: systolic murmur - Extremities Extremities: no ischemia - Abdominal General gastrointestinal: soft, non-tender, non-distended, normal bowel sounds - Psychiatric Psychiatric: no appropriate mood/affect, no intact judgment & insight - Neurologic Neurologic: CNII-XII intact, no focal deficits Results - Labs CBC & Chem 7: 08/27/17 05:10 08/29/17 05:56 Labs: Laboratory Last Values WBC 6.2 K/mm3 (4.5-11.0) 08/27/17 05:10 RBC 3.95 M/mm3 (3.65-5.03) 08/27/17 05:10 Hgb 11.5 gm/dl (10.1-14.3) 08/27/17 05:10 Hct 34.3 % (30.3-42.9) 08/27/17 05:10 MCV 87 fl (79-97) 08/27/17 05:10 MCH 29 pg (28-32) 08/27/17 05:10 MCHC 34 % (30-34) 08/27/17 05:10 RDW 14.1 % (13.2-15.2) 08/27/17 05:10 Plt Count 243 K/mm3 (140-440) 08/27/17 05:10 Lymph % (Auto) 35.3 % (13.4-35.0) H 08/27/17 05:10 Bond % (Auto) 8.3 % (0.0-7.3) H 08/27/17 05:10 Eos % (Auto) 1.5 % (0.0-4.3) 08/27/17 05:10 Baso % (Auto) 0.3 % (0.0-1.8) 08/27/17 05:10 Lymph # 2.2 K/mm3 (1.2-5.4) 08/27/17 05:10 Bond # 0.5 K/mm3 (0.0-0.8) 08/27/17 05:10 Eos # 0.1 K/mm3 (0.0-0.4) 08/27/17 05:10 Baso # 0.0 K/mm3 (0.0-0.1) 08/27/17 05:10 Seg Neutrophils % 54.6 % (40.0-70.0) 08/27/17 05:10 Seg Neutrophils # 3.4 K/mm3 (1.8-7.7) 08/27/17 05:10 ESR 15 mm/Hr (0-20) 08/28/17 15:00 Sodium 140 mmol/L (137-145) 08/29/17 05:56 Potassium 3.9 mmol/L (3.6-5.0) D 08/29/17 05:56 Chloride 102.9 mmol/L (98-107) 08/29/17 05:56 Carbon Dioxide 25 mmol/L (22-30) 08/29/17 05:56 Anion Gap 16 mmol/L 08/29/17 05:56 BUN 8 mg/dL (7-17) 08/29/17 05:56 Creatinine 0.4 mg/dL (0.7-1.2) L 08/29/17 05:56 Estimated GFR > 60 ml/min 08/29/17 05:56 BUN/Creatinine Ratio 20 % 08/29/17 05:56 Glucose 99 mg/dL (65-100) 08/29/17 05:56 Lactic Acid 0.70 mmol/L (0.7-2.0) 08/26/17 16:22 Calcium 8.8 mg/dL (8.4-10.2) 08/29/17 05:56 Magnesium 2.10 mg/dL (1.7-2.3) 08/29/17 05:56 Total Bilirubin 0.20 mg/dL (0.1-1.2) 08/27/17 05:10 AST 11 units/L (5-40) 08/27/17 05:10 ALT 9 units/L (7-56) 08/27/17 05:10 Alkaline Phosphatase 86 units/L (35-129) 08/27/17 05:10 Total Creatine Kinase 46 units/L (30-135) 08/26/17 13:47 CK-MB (CK-2) < 1.0 ng/mL (0.0-4.0) 08/26/17 13:47 CK-MB (CK-2) Rel Index 2.1 (0-4) 08/26/17 13:47 Troponin T < 0.010 ng/mL (0.00-0.029) 08/26/17 13:47 C-Reactive Protein 0.10 mg/dL (0.00-1.30) 08/28/17 15:00 Total Protein 6.3 g/dL (6.3-8.2) 08/27/17 05:10 Albumin 3.6 g/dL (3.9-5) L 08/27/17 05:10 Albumin/Globulin Ratio 1.3 % 08/27/17 05:10 TSH 0.435 mlU/mL (0.270-4.200) 08/26/17 13:47 Urine Color Yellow (Yellow) 08/26/17 15:30 Urine Turbidity Clear (Clear) 08/26/17 15:30 Urine pH 7.0 (5.0-7.0) 08/26/17 15:30 Ur Specific [place] 1.008 (1.003-1.030) 08/26/17 15:30 Urine Protein <15 mg/dl mg/dL (Negative) 08/26/17 15:30 Urine Glucose (UA) Neg mg/dL (Negative) 08/26/17 15:30 Urine Ketones Neg mg/dL (Negative) 08/26/17 15:30 Urine Blood Neg (Negative) 08/26/17 15:30 Urine Nitrite Neg (Negative) 08/26/17 15:30 Urine Bilirubin Neg (Negative) 08/26/17 15:30 Urine Urobilinogen < 2.0 mg/dL (<2.0) 08/26/17 15:30 Ur Leukocyte Esterase Neg (Negative) 08/26/17 15:30 Urine WBC (Auto) < 1.0 /HPF (0.0-6.0) 08/26/17 15:30 Urine RBC (Auto) 3.0 /HPF (0.0-6.0) 08/26/17 15:30 U Epithel Cells (Auto) 1.0 /HPF (0-13.0) 08/26/17 15:30 Salicylates < 0.3 mg/dL (2.8-20.0) L 08/26/17 13:47 Urine Opiates Screen Presumptive negative 08/26/17 16:15 Urine Methadone Screen Presumptive negative 08/26/17 16:15 Acetaminophen < 15.0 ug/mL (10.0-30.0) 08/26/17 13:47 Ur Barbiturates Screen Presumptive negative 08/26/17 16:15 Ur Phencyclidine Scrn Presumptive negative 08/26/17 16:15 Ur Amphetamines Screen Presumptive negative 08/26/17 16:15 U Benzodiazepines Scrn Presumptive negative 08/26/17 16:15 Urine Cocaine Screen Presumptive negative 08/26/17 16:15 U Marijuana (THC) Screen Presumptive positive 08/26/17 16:15 Drugs of Abuse Note Disclamer 08/26/17 16:15 Plasma/Serum Alcohol < 0.01 gm% (0-0.07) 08/26/17 13:47
[2017-08-30] MEDS: ASPIRIN PO SCH (11:25)
[2017-08-30] MEDS: NORCO 5/325 PO PRN (13:42)
--- NOTE | 2017-08-30 16:21 | Consultation ---
History of Present Illness - Reason for Consult Reason for consult: psychogenic seizures - History of Present Psychiatric Illness This is a 47 year old female with no formal PPH who presents for evaluation of disequilibrium and other altered behaviors. Per review of the medical records, patient's has had a neurology consult which has ruled out EEG with an unremarkable head CT and MRI. Nevertheless, the patient continues to report "burning up" and sweating. She notes these symptoms have been ongoing for several months and exacerbated since the of her mother. She refuses to describe them as periods of anxiety or panic attacks. When symptoms become severe enough, she notes having twitching episodes with eventual loss of movement in the body. During these times, she is aware of her surrounding but has her eyes closed. She does not become incontinent. When asked about depression, she denies having moods changes, but then notes who wouldn't be sad after loosing their mother. She notes "my mother was everything to me". Throughout the discussion she frequently split between her providers and referenced similar splits between the provider for her mother. She does not reports symptoms of psychosis or oscar. General Appearance: casually dressed in hospital gown, no acute distress Sensorium/Consciousness: alert and responding; clear Orientation: person, place, time and situation Eye Contact: good Attitude / Behavior: well related, but attempting to tell her story, cooperative Psychomotor & Musculoskeletal Activity: WNL Mood: ok Affect: full range Speech / Language: fluent, with normal rate/rhythm/tone Thought Processes: organized, logical, linear Thought Content: no SI/HI Perception: no AVH Insight: limited Judgement: fair Capacity for ADLs: independent Diagnostic Impression: Grief Evaluate for MDD Likely with Panic Disorder 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 I encouraged the patient to do so, but she declined the referral. Medications and Allergies Allergies Allergy/AdvReac Type Severity Reaction Status Date / Time No Known Allergies Allergy Verified 12/17/16 17:57 Home Medications Medication Instructions Recorded Confirmed Last Taken Type Aspirin [Aspirin TAB] 325 mg PO QDAY #30 tablet 11/07/16 08/29/17 Unknown Rx Clopidogrel Bisulfate [Plavix] 75 mg PO QDAY 08/29/17 08/29/17 Unknown History Rosuvastatin (Nf) [Crestor] 10 mg PO DAILY 08/29/17 08/29/17 Unknown History Active Meds: Active Medications Acetaminophen (Tylenol) 650 mg PO Q4H PRN PRN Reason: Pain MILD(1-3)/Fever >100.5/MARTINEZ Last Admin: 08/27/17 23:51 Dose: 650 mg Acetaminophen/Hydrocodone Bitart ([place] 5/325) 2 each PO Q6H PRN PRN Reason: Pain, Moderate (4-6) Last Admin: 08/30/17 13:42 Dose: 2 each Aspirin (Aspirin) 325 mg PO QDAY [facility] Last Admin: 08/30/17 11:25 Dose: 325 mg Bisacodyl (Dulcolax) [address] QDAY PRN PRN Reason: Constipation unrelieved by MOM Magnesium Hydroxide (Milk Of Magnesia) 30 ml PO Q4H PRN PRN Reason: Constipation Meclizine HCl (Antivert) 12.5 mg PO Q12H PRN PRN Reason: Vertigo Morphine Sulfate (Morphine) 2 mg IV Q4H PRN PRN Reason: Pain, Moderate (4-6) Ondansetron HCl (Zofran) 4 mg IV Q8H PRN PRN Reason: N/V unrelieved by Reglan Oxycodone/Acetaminophen (Percocet 5/325) 1 tab PO Q6H PRN PRN Reason: Pain, Moderate (4-6) Pravastatin Sodium (Pravachol) 40 mg PO QHS BRITTANI Zolpidem Tartrate (Ambien) 5 mg PO QHS PRN PRN Reason: Sleep Last Admin: 08/29/17 19:28 Dose: 5 mg Mental Status Exam - Vital signs Last Vital Signs Temp 98.9 F 08/30/17 07:36 Pulse 73 08/30/17 07:36 Resp 16 08/30/17 07:36 BP 106/68 08/30/17 07:36 Pulse Ox 98 08/30/17 07:36 Results Result Diagrams: 08/27/17 05:10 08/29/17 05:56 All other labs normal.
[2017-08-30 17:25] VITALS: BP 110/64
--- NOTE | 2017-08-30 18:53 | Discharge Summary ---
Providers - Providers Date of Admission: 08/26/17 17:40 Date of discharge: 08/30/17 Attending physician: NIECY LINDER 08/27/17 16:29 Consult to Physician [CONS] Routine Consulting Provider: HARRISON MORALES Reason For Exam: ICA Rt 50 to [address] to:: vascular Notified:: michelle service Phone number called:: [phone] Was contact made?: Yes If yes, spoke with:: fredrick August called:: 16:45 Comment:: dr palencia estimation manager 08/28/17 19:29 Consult to Physician [CONS] Routine Consulting Provider: EMILIA GIANG Reason For Exam: syncope/tinnitus/right-sided facial numbness Place consult to:: Dr. Emilia Giang Notified:: DR. Jc GIANG Comment:: and hyperesthesia psychiatry consult [Consult to Mental Health] [CONS] Routine Reason For Exam: depression/anxiety Place consult to:: Notified:: CLARA Phone number called:: [phone] Was contact made?: Yes If yes, spoke with:: CLARA Time called:: 09:30 Primary care physician: ASSISTANT PORTFOLIO MANAGER Hospitalization Reason for admission: questionable syncope, seizure-like activity Condition: Stable Pertinent studies: CT head Echocardiogram Stress test Carotid Doppler CTA chest EEG Hospital course: Vik is a 47 yo female, smoker, with hyperlipidemia, who presented for constant dizziness, facial numbness, hyperesthesia, ringing in the ear, episodes of altered sensorium; she describes episodes of shaking like seizure activity, but there is no postictal state and she is aware of surroundings during these episodes; of note, she is grieving after her mother's recent for which she cared a couple of years (her mother had narcotics/psychotropic medications abuse/dependence along with multiple chronic medical conditions). She had cardiac ischemic evaluation for questionable syncope/TIA which was normal. Carotid Doppler revealed 50-79% stenosis on the right side, so vascular surgery was consulted; CTA chest obtained and showed no vascular stenosis, no intervention needed. Concern for pseudoseizure/conversion disorder /psychiatric issue raised based on her symptoms. Evaluated by neurology and diagnosed with altered behavior of psychogenic cause, nonepileptic spells; recommended possible vestibular rehabilitation program if dysequilibrum persists and psychiatric evaluation. Psychiatry consulted, diagnosed with depression, but refused treatment or outpatient follow-up. Counseled regarding importance of quitting smoking, adherence to treatment for hyperlipidemia, follow-up appointment with her PCP and need for psychiatry follow-up. Discharged in her family's care. Discharge diagnoses: Altered behavior of psychogenic cause Pseudoseizures Depression/grief Hyperlipidemia Nicotine dependence Disposition: DC-01 TO HOME OR SELFCARE Time spent for discharge: 40 min Core Measure Documentation - Palliative Care Palliative Care/ Comfort Measures: Not Applicable - Core Measures Any of the following diagnoses?: none Exam - Physical Exam Narrative exam: Seen and examined: - Constitutional Vitals: Temp Pulse Resp BP Pulse Ox 98.6 F 74 16 110/64 97 08/30/17 15:31 08/30/17 15:31 08/30/17 15:31 08/30/17 15:31 08/30/17 15:31 General appearance: Present: no acute distress, well-nourished - EENT Eyes: Present: PERRL, EOM intact - Neck Neck: Present: supple, normal ROM. Absent: masses or JVD - Respiratory Respiratory effort: normal Respiratory: bilateral: CTA, negative: rhonchi, wheezing - Cardiovascular Rhythm: regular Heart Sounds: Present: S1 & S2. Absent: systolic murmur - Extremities Extremities: no ischemia - Abdominal General gastrointestinal: Present: soft, non-tender, non-distended, normal bowel sounds - Musculoskeletal Musculoskeletal: strength equal bilaterally - Psychiatric Psychiatric: no appropriate mood/affect, no intact judgment & insight, cooperative, depressed - Neurologic Neurologic: CNII-XII intact, no focal deficits Plan Activity: advance as tolerated, fall precautions Diet: low cholesterol, low salt Additional Instructions: Follow-up with outpatient psychiatry as recommended. If imbalance/ringing in the ear symptoms persist, discussed with your PCP about referral to a vestibular rehabilitation program Follow up with: PRIMARY CARE, [Primary Care Provider] - 3-5 Days Prescriptions: Pravastatin [Pravachol] 20 mg PO QHS #30 tablet Zolpidem [Ambien] 5 mg PO QHS PRN #10 tablet PRN Reason: Sleep Aspirin EC [Aspirin Enteric Coated TAB] 81 mg PO QDAY #30 tablet. HYDROcodone/APAP 5-325 [[place] 5-325 mg TAB] 1 each PO Q6H PRN #10 tablet PRN Reason: Pain, Moderate (4-6)
[2017-08-30] MEDS ORDERED: PRAVACHOL PO SCH (22:00)
--- NOTE | 2017-08-31 08:04 | Vascular Lab Report ---
CAROTID DUPLEX STUDY: RIGHT PSVEDV CCA [id number] CCA [id number] ICA [id number] ICA [id number] ICA DIST:[id number] ECA: 109 VERT: 49 19 LEFT PSVEDV CCA [id number] CCA [id number] ICA PROX:[id number] ICA MID:[id number] ICA DIST:[id number] ECA: 105 VERT: 46 19 REASON FOR EXAM: History of TIA in the past. COMMENTS ON THE RIGHT: Doppler frequency analysis is consistent with 50 to 79 percent diameter reduction of the internal carotid artery. Moderate amount of plaque is noted in the carotid bulb and internal carotid artery The common carotid artery is patent. The external carotid artery is patent. The vertebral artery has antegrade flow. COMMENTS ON THE LEFT: Doppler frequency analysis is consistent with 16 to 49 percent diameter reduction of the internal carotid artery. Minimal amount of plaque is seen. The common carotid artery is patent. The external carotid artery is patent. The vertebral artery has antegrade flow. IMPRESSION: 50 to 79 percent diameter reduction in the right internal carotid artery 16 to 49 percent diameter reduction in the left internal carotid artery Clinical correlation recommended consider contrast study.
== END 2017-08-30 20:26 | disposition home or self-care (01) | DRG 68 ==
LOC: ED 13:12 → 4A 17:40 → 3A 08-28 01:38
PROVIDERS: ADMIT Internal Medicine; ATTEND Internal Medicine
DX: I65.21 Occlusion and stenosis of right carotid artery (principal); E78.00 Pure hypercholesterolemia, unspecified; E78.5 Hyperlipidemia, unspecified; R55 Syncope and collapse; G89.29 Other chronic pain; H83.01 Labyrinthitis, right ear; I70.8 Atherosclerosis of other arteries; Z79.82 Long term (current) use of aspirin; Z79.899 Other long term (current) drug therapy; Z98.51 Tubal ligation status; Z86.73 Personal history of transient ischemic attack (TIA), and cerebral infarction without residual deficits; Z79.02 Long term (current) use of antithrombotics/antiplatelets
CPT/HCPCS: 36415; 70450; 70498; 70551; 71275; 78452; 80048; 80053; 80307; 80320; 81001; 82140; 82550; 82553; 83735; 84443; 84484; 85025; 85652; 86140; 93005; 93010; 93017; 93306; 93880; 95819; 96374; 99406; A9270-GY; A9502; G0480; J2060; J2785; J7042; Q9967

== ENCOUNTER 2018-02-05 09:07 | Emergency (ER) | payer OTHER ==
[2018-02-05 10:27] LABS: Bilirubin,Urine NEG (Negative); Blood,Urine NEG (Negative); Color,Urine Yellow (Yellow); Mucus,Urine FEW /HPF; Protein,Urine <15 mg/dL mg/dL (Negative); Urobilinogen,Urine < 2.0 mg/dL (<2.0)
[2018-02-05 10:28] LABS: Basophils % (Auto) 0.3 % (0.0-1.8); Eosinophils % (Auto) 0.5 % (0.0-4.3); Hematocrit 29.5 % (30.3-42.9); Hemoglobin 9.8 gm/dl (10.1-14.3); Lymphocytes # (Auto) 1.5 K/mm3 (1.2-5.4); Mean Corpuscular HGB Conc 33 % (30-34); Mean Corpuscular Hemoglobin 27 pg (28-32); Mean Corpuscular Volume 81 fl (79-97); Monocytes # (Auto) 0.3 K/mm3 (0.0-0.8); Monocytes % (Auto) 5.8 % (0.0-7.3); Platelet Count 321 K/mm3 (140-440); Red Blood Count 3.66 M/mm3 (3.65-5.03); Red Cell Distribution Width 15.5 % (13.2-15.2)
[2018-02-05 10:39] LABS: BUN/Creatinine Ratio 28; Blood Urea Nitrogen 14 mg/dL (7-17); Calcium 8.9 mg/dL (8.4-10.2); Hemolysis Index 1
[2018-02-05 14:31] VITALS: BP 107/52
--- NOTE | 2018-02-05 14:55 | Emergency Department Report ---
ED General Adult HPI - General Chief complaint: Back Pain/Injury Stated complaint: LEFT FLANK PAIN Time Seen by Provider: 02/05/18 14:26 Source: patient Mode of arrival: Ambulatory Limitations: No Limitations - History of Present Illness Initial comments: Patient gives history of recurrent episodes left flank pain for the past 3 months. Discomfort has been progressive over the past month, and more or less persistent over the past couple of days. She associates this with various foul- smelling urine early in the morning shortly after workup, but she has not had any dysuria, no fever chills or diaphoresis either. She saw her primary care physician for this 2 months ago had a urinalysis, which was negative at that time. She did not follow-up as symptoms were fairly mild and intermittent during that time, but they have persisted in any case. She's not had any abdominal pain, no nausea or vomiting, and no diarrhea. There is no history of gastrointestinal problems or genitourinary problems, nor back problems. She's not had any falls or injury. She has no history of lumbar or spinal disease. She does have a history of hypercholesterolemia, 2 prior TIAs during the last year, and a 79% right internal carotid stenosis, which doctors will not operate on until it reaches at least 90%. Discomfort has been more or less consistent over the past couple days, constant , PND, aching, worse with movement, more so when twisting towards the right, or with straightening up from bending. She has some secondary radiation of discomfort down her left leg, but reports that she feels a sharp tingling pain down her left leg, and sometimes felt that she has been paralyzed from pain, with difficulty getting out of bed over the past day or so. There is been no actual paralysis, and she is eventually able to make her way up and around. She has no bowel or bladder dysfunction, no urinary retention, and no constipation. -: Gradual (over months, worse over the past few days) Location: back, left Radiation: extremity Severity scale (0 -10): 8 Quality: stabbing, aching, constant Consistency: constant Improves with: none Worsens with: movement Associated Symptoms: denies: chest pain, fever/chills, loss of appetite, nausea/ vomiting Treatments Prior to Arrival: none - Related Data Previous Rx's Medication Instructions Recorded Last Taken Type Aspirin EC [Aspirin Enteric Coated 81 mg PO QDAY #30 tablet. 08/30/17 Unknown Rx TAB] Pravastatin [Pravachol] 20 mg PO QHS #30 tablet 08/30/17 Unknown Rx Zolpidem [Ambien] 5 mg PO QHS PRN #10 tablet 08/30/17 Unknown Rx Cyclobenzaprine [Flexeril 10 MG 10 mg PO TID PRN #30 tablet 02/05/18 Unknown Rx TAB] HYDROcodone/APAP 5-325 [Renault 1 each PO Q6H PRN #20 tablet 02/05/18 Unknown Rx 5-325 mg TAB] Sulfamethoxazole/Trimethoprim 1 each PO BID #14 tablet 02/05/18 Unknown Rx [Bactrim DS TAB] Allergies Allergy/AdvReac Type Severity Reaction Status Date / Time No Known Allergies Allergy Verified 12/17/16 17:57 ED Review of Systems ROS: Stated complaint: LEFT FLANK PAIN Other details as noted in HPI Constitutional: no symptoms reported Eyes: denies: eye pain, eye discharge, vision change ENT: denies: ear pain, throat pain Respiratory: denies: cough, shortness of breath, wheezing Cardiovascular: denies: chest pain, palpitations Endocrine: no symptoms reported Gastrointestinal: denies: abdominal pain, nausea, vomiting Genitourinary: other (abnormal spell on first void urine). denies: urgency, dysuria, frequency, hematuria Musculoskeletal: back pain. denies: joint swelling, arthralgia, myalgia Skin: denies: rash, lesions Neurological: paresthesias, other (pain and right lower extremity) Hematological/Lymphatic: denies: easy bleeding, easy bruising ED Past Medical Hx - Past Medical History Hx Hypertension: No Hx CVA: Yes (TIA (OCTOBER 2016)) Hx Congestive Heart Failure: No Hx Diabetes: No Hx Seizures: No Hx Asthma: No Hx COPD: No Additional medical history: HIGH CHOLESTEROL. LEFT ICA STENOSIS - Surgical History Additional Surgical History: TUBAL LIGATION - Social History Smoking Status: Former Smoker Substance Use Type: None - Medications Home Medications: Home Medications Medication Instructions Recorded Confirmed Last Taken Type Aspirin EC [Aspirin Enteric Coated 81 mg PO QDAY #30 tablet. 08/30/17 Unknown Rx TAB] Pravastatin [Pravachol] 20 mg PO QHS #30 tablet 08/30/17 Unknown Rx Zolpidem [Ambien] 5 mg PO QHS PRN #10 tablet 08/30/17 Unknown Rx Cyclobenzaprine [Flexeril 10 MG 10 mg PO TID PRN #30 tablet 02/05/18 Unknown Rx TAB] HYDROcodone/APAP 5-325 [Renault 1 each PO Q6H PRN #20 tablet 02/05/18 Unknown Rx 5-325 mg TAB] Sulfamethoxazole/Trimethoprim 1 each PO BID #14 tablet 02/05/18 Unknown Rx [Bactrim DS TAB] ED Physical Exam - General Limitations: No Limitations General appearance: anxious - Head Head exam: Present: atraumatic, normocephalic - Eye Eye exam: Present: normal appearance - ENT ENT exam: Present: mucous membranes moist - Neck Neck exam: Present: normal inspection - Respiratory Respiratory exam: Present: normal lung sounds bilaterally. Absent: respiratory distress - Cardiovascular Cardiovascular Exam: Present: regular rate, normal rhythm. Absent: systolic murmur, diastolic murmur, rubs, gallop - GI/Abdominal GI/Abdominal exam: Present: soft, normal bowel sounds. Absent: tenderness, guarding, rebound - Rectal Rectal exam: Present: deferred - Extremities Exam Extremities exam: Present: normal inspection, other (negative straight leg raise on both lower extremities). Absent: tenderness - Back Exam Back exam: Present: full ROM (discomfort on raising, but good forward flexion, and good rotational flexion, pain on right rotational flexion), tenderness ( left paralumbar musculature extending laterally). Absent: CVA tenderness (R), CVA tenderness (L), muscle spasm - Neurological Exam Neurological exam: Present: alert, oriented X3, CN II-XII intact. Absent: motor sensory deficit - Psychiatric Psychiatric exam: Present: agitated, anxious - Skin Skin exam: Present: warm, dry, intact, normal color. Absent: rash ED Course Vital Signs 02/05/18 09:16 Temperature 99.1 F Pulse Rate 91 H Respiratory 20 Rate Blood Pressure 141/70 O2 Sat by Pulse 98 Oximetry ED Medical Decision Making - Lab Data Result diagrams: 02/05/18 10:04 02/05/18 10:04 - Medical Decision Making Patient's urinalysis is negative, and white count is normal, although she is moderately anemic, but this is likely secondary to increased duration and flow menstrual cycles since patient was started on clopidogrel after TIAs. Patient's physical findings are more consistent with a musculoskeletal cause of patient's discomfort, and I suspect that she may have a herniated disc as cause of her discomfort, although the radicular symptoms are not classic, there probably consistent enough to to warrant further evaluation. MRI scanning would be recommended, but plain x-rays are not indicated and therefore not performed during this visit. Nevertheless, patient appears to be fixated on having a urinary tract infection , and although I discussed normal urinary findings, and lack of symptoms or physical findings to suggest a urinary tract infection, patient still wishes to have antibody treatment. For patient's emotional comfort, I will prescribe a short course of Bactrim, but will also treat patient discomfort with hydrocodone , as well as muscle relaxant, with recommendations of symptomatic control with heating pads, and she will need follow-up examination, which can be arranged through her primary care doctor. Critical Care Time: No Critical care attestation.: If time is entered above; I have spent that time in minutes in the direct care of this critically ill patient, excluding procedure time. ED Disposition Clinical Impression: Lumbar back pain with radiculopathy affecting left lower extremity Disposition: DC-01 TO HOME OR SELFCARE Is pt being admited?: No Does the pt Need Aspirin: No Condition: Stable Instructions: Lumbar Radiculopathy (ED), Chronic Back Pain (ED) Additional Instructions: Your pain is more consistent with a musculoskeletal source, and we are concerned that he may have a herniated disc in her lumbar spine. Our primary treatments are local heat 3-4 times per day, moderate heat only, as well as analgesics with hydrocodone, and muscle relaxants with cyclobenzaprine. We recommend he rest today, as well as tomorrow, and limit the amount of physical activity or doing during this time. You should have follow-up with your doctor in the next week or so, and we recommend an MRI as next diagnostic test to determine if you have a herniated disc. Because we are concerned about urinary tract infection, we are also treating with an antibiotic, Bactrim, to be taken twice daily for the next week. Have recheck with your doctor in the next week or so to see how you're doing. Prescriptions: Cyclobenzaprine [Flexeril 10 MG TAB] 10 mg PO TID PRN #30 tablet PRN Reason: Muscle Spasm HYDROcodone/APAP 5-325 [Renault 5-325 mg TAB] 1 each PO Q6H PRN #20 tablet PRN Reason: Pain, Moderate (4-6) Sulfamethoxazole/Trimethoprim [Bactrim DS TAB] 1 each PO BID #14 tablet Referrals: UDKE GARRISON MD [Primary Care Provider] - 3-5 Days Time of Disposition: 15:11
[2018-02-05] MEDS ORDERED: NARCAN 2 MG/2 ML IV ONE (14:58)
[2018-02-05] MEDS ORDERED: PERCOCET 5/325 PO ONE (15:40)
== END 2018-02-05 15:44 | disposition home or self-care (01) ==
LOC: ED 09:07
DX: M54.16 Radiculopathy, lumbar region (principal); Z79.82 Long term (current) use of aspirin; E78.00 Pure hypercholesterolemia, unspecified; Z98.51 Tubal ligation status; Z87.891 Personal history of nicotine dependence
CPT/HCPCS: 36415; 80048; 81001; 85025; 99283

== ENCOUNTER 2018-06-07 06:01 | Day surgery (SDC) | payer OTHER ==
[2018-06-07] MEDS ORDERED: DIPRIVAN 10 MG/ML IV ONE (09:23)
== END 2018-06-07 06:02 | disposition home or self-care (01) ==
LOC: GIO 06:01
PROVIDERS: ATTEND Internal Medicine Gastroenterology
DX: K21.9 Gastro-esophageal reflux disease without esophagitis (principal); R22.1 Localized swelling, mass and lump, neck; K30 Functional dyspepsia; E78.5 Hyperlipidemia, unspecified; Z53.8 Procedure and treatment not carried out for other reasons; Z87.891 Personal history of nicotine dependence; Z79.82 Long term (current) use of aspirin; Z79.899 Other long term (current) drug therapy
CPT/HCPCS: J2704

== ENCOUNTER 2021-12-20 11:47 | Emergency (ER) | payer MEDICAID, OTHER ==
[2021-12-20] MEDS ORDERED: METOCLOPRAMIDE 10 MG TAB PO ONE (15:27)
[2021-12-20] MEDS ORDERED: IBUPROFEN 400 MG TAB PO ONE (15:27)
[2021-12-20] MEDS ORDERED: ACETAMINOPHEN 325 MG TAB PO ONE (15:27)
--- NOTE | 2021-12-20 15:33 | Emergency Department Report ---
ED General Adult HPI - General Chief complaint: Neuro Symptoms/Deficit Stated complaint: Headache, muscle spasm, lower lip numbness bilateral Time Seen by Provider: 12/20/21 15:15 Source: patient, RN notes reviewed, old records reviewed Mode of arrival: Ambulatory Limitations: No Limitations - History of Present Illness Initial comments: This patient is a 51-year-old female who presents to the ER with 1 week of intermittent left-sided headache, associated with bilateral lower lip numbness, not upper lip, and left-sided trapezius and cervical muscular spasm. Headache is not sudden or thunderclap in nature. Headache is not maximal in intensity. The headache is not described as the worst headache of her life. She denies fever, chills, nausea, vomiting, diarrhea, ataxia, and loss of vision. The patient has not taken [id number] analgesia. The patient reports no recent chiropractic manipulation, or no recent motor vehicle accident. She denies additional injuries and complaints. Her symptoms are resolved at this time. They do not have exacerbating relieving factors that she is aware of. She reports that she feels a little "stressed", and also reports that she is taking prescription Zoloft at home. Of note, this patient was admitted in 2017 twice for TIA symptoms, and had negative MRI x2 -: days(s) Location: mouth, neck, left Quality: aching Consistency: intermittent Improves with: none Worsens with: none - Related Data Previous Rx's Medication Instructions Recorded Last Taken Type Aspirin EC [Halfprin EC] 81 mg PO QDAY #30 tablet. 08/30/17 Unknown Rx Pravastatin [Pravachol] 20 mg PO QHS #30 tablet 08/30/17 Unknown Rx Zolpidem [Ambien] 5 mg PO QHS PRN #10 tablet 08/30/17 Unknown Rx Sulfamethoxazole/Trimethoprim 1 each PO BID #14 tablet 02/05/18 Unknown Rx [Bactrim DS TAB] Acetaminophen [Non-Aspirin Extra 500 mg PO Q6HR PRN #30 tablet 12/20/21 Unknown Rx Strength] Ibuprofen [Motrin] 600 mg PO Q8H PRN #30 tablet 12/20/21 Unknown Rx Metoclopramide [Reglan] 10 mg PO QID PRN #30 tablet 12/20/21 Unknown Rx Allergies Allergy/AdvReac Type Severity Reaction Status Date / Time No Known Allergies Allergy Verified 12/17/16 17:57 ED Review of Systems ROS: Stated complaint: PAIN STIFNESS/NUMBNESS LFT SIDE FACE AND LIP Other details as noted in HPI Constitutional: denies: fever Eyes: denies: eye discharge, vision change ENT: denies: ear pain, throat pain, epistaxis, congestion Respiratory: denies: cough Cardiovascular: denies: chest pain Gastrointestinal: denies: abdominal pain Neurological: headache, numbness. denies: weakness, paresthesias, confusion, abnormal gait, vertigo Hematological/Lymphatic: denies: easy bleeding ED Past Medical Hx - Past Medical History Hx Hypertension: No Hx CVA: Yes (TIA (OCTOBER 2016)) Hx Congestive Heart Failure: No Hx Diabetes: No Hx Seizures: No Hx Asthma: No Hx COPD: No Additional medical history: HIGH CHOLESTEROL. LEFT ICA STENOSIS - Surgical History Additional Surgical History: TUBAL LIGATION - Social History Smoking Status: Former Smoker Substance Use Type: None - Medications Home Medications: Home Medications Medication Instructions Recorded Confirmed Last Taken Type Aspirin EC [Halfprin EC] 81 mg PO QDAY #30 tablet. 08/30/17 Unknown Rx Pravastatin [Pravachol] 20 mg PO QHS #30 tablet 08/30/17 Unknown Rx Zolpidem [Ambien] 5 mg PO QHS PRN #10 tablet 08/30/17 Unknown Rx Sulfamethoxazole/Trimethoprim 1 each PO BID #14 tablet 02/05/18 Unknown Rx [Bactrim DS TAB] Acetaminophen [Non-Aspirin Extra 500 mg PO Q6HR PRN #30 tablet 12/20/21 Unknown Rx Strength] Ibuprofen [Motrin] 600 mg PO Q8H PRN #30 tablet 12/20/21 Unknown Rx Metoclopramide [Reglan] 10 mg PO QID PRN #30 tablet 12/20/21 Unknown Rx ED Physical Exam - General Limitations: No Limitations General appearance: alert, in no apparent distress - Head Head exam: Present: atraumatic, normocephalic - Eye Eye exam: Present: normal appearance, PERRL, EOMI, other (Visual acuity intact to finger counting, color perception, reading at a close distance). Absent: nystagmus - ENT ENT exam: Present: normal exam, normal orophraynx, mucous membranes moist, TM's normal bilaterally, normal external ear exam - Neck Neck exam: Present: normal inspection, full ROM, other (No carotid bruits appreciated). Absent: tenderness, meningismus, lymphadenopathy - Respiratory Respiratory exam: Present: normal lung sounds bilaterally. Absent: respiratory distress, wheezes, rales, rhonchi, stridor, decreased breath sounds - Cardiovascular Cardiovascular Exam: Present: regular rate, normal rhythm, normal heart sounds. Absent: bradycardia, tachycardia, irregular rhythm, systolic murmur, diastolic murmur, rubs, gallop - GI/Abdominal GI/Abdominal exam: Present: soft. Absent: distended, tenderness, guarding, rebound, rigid, pulsatile mass - Extremities Exam Extremities exam: Present: normal inspection, full ROM, other (2+ pulses noted in the bilateral upper and lower extremities. There is no palpable cord. negative Homans sign. Muscular compartments are soft. The pelvis is stable.). Absent: pedal edema, calf tenderness - Back Exam Back exam: Present: normal inspection, full ROM. Absent: tenderness, CVA tenderness (R), CVA tenderness (L), paraspinal tenderness, vertebral tenderness - Neurological Exam Neurological exam: Present: alert, oriented X3, normal gait, other (There is no facial droop. The tongue is midline. Extraocular movements are intact bilaterally. There is 5 out of 5 strength in bilateral upper and lower extremities. Sensation is intact to light touch bilateral upper and lower extremities. There is no past-pointing. There is no pronator drift.). Absent: motor sensory deficit - Psychiatric Psychiatric exam: Present: anxious - Skin Skin exam: Present: warm, dry, intact, normal color. Absent: rash ED Course Vital Signs 12/20/21 12:07 Temperature 99.1 F Pulse Rate 86 Respiratory 18 Rate Blood Pressure 150/80 [Right] O2 Sat by Pulse 98 Oximetry ED Medical Decision Making - Lab Data Vital Signs 12/20/21 12:07 Temperature 99.1 F Pulse Rate 86 Respiratory 18 Rate Blood Pressure 150/80 [Right] O2 Sat by Pulse 98 Oximetry - Medical Decision Making Differential diagnosis, including but not limited to: Migraine headache, tension headache, cluster headache, cervical sprain/strain Assessment and plan: 51-year-old female, who was afebrile, with reassuring vital signs, clinically sober, with a GCS of 15, NIH score of 0, without, fever, chills, nausea or vomiting, unremarkable neurologic and cerebellar exam, presenting with left-sided headache which is not sudden or thunderclap in nature, no risk factors for blunt cerebrovascular injury, afebrile, soft supple neck, with multiple characteristics of headache, including bilateral lower lip numbness. Reassurance provided. Analgesia provided. She may follow-up with her primary care doctor. Her history and physical this time are benign, and she may follow- up with an outpatient physician for further evaluation and management Critical care attestation.: If time is entered above; I have spent that time in minutes in the direct care of this critically ill patient, excluding procedure time. ED Disposition Clinical Impression: Headache Disposition: HOME / SELF CARE / HOMELESS Is pt being admited?: No Does the pt Need Aspirin: No Condition: Good Additional Instructions: Rest, avoid heavy lifting and strenuous physical activities. Please take the prescribed pain medications as needed and directed. Alternate ice packs and heat packs as needed for physical pain. Recommend follow-up with your outpatient primary care doctor within the next 7 to 10 days. Please return to the emergency room right away with new pain, worsened pain, migration of pain, projectile vomiting, change in mental status, confusion, inability tolerate liquid feeds, new, worsened or different symptoms not present on the initial emergency room evaluation Avoid consumption of tobacco, alcohol, smoke products. Make certain to get at least 7 to 8 hours of good quality uninterrupted sleep each evening Referrals: [facility] [Provider Group] - 7-10 days Forms: Work/School Release Form(ED)
[2021-12-20 16:05] VITALS: BP 136/88
== END 2021-12-20 16:05 | disposition home or self-care (01) ==
LOC: ED 11:47
DX: R51.9 Headache, unspecified (principal); R20.0 Anesthesia of skin; E78.00 Pure hypercholesterolemia, unspecified; Z98.51 Tubal ligation status; Z87.891 Personal history of nicotine dependence; Z79.82 Long term (current) use of aspirin; Z79.899 Other long term (current) drug therapy
CPT/HCPCS: 82962; 93005; 99283

== ENCOUNTER 2022-03-16 03:09 | Emergency (ER) | payer SELFPAY ==
[2022-03-16 03:25] VITALS: BP 132/76
[2022-03-16] MEDS ORDERED: ONDANSETRON 4 MG/2 ML INJ IV ONE (10:52)
[2022-03-16] MEDS ORDERED: SODIUM CHLORIDE 0.9% 1000 ML 1,000 ML IV ONE (10:52)
[2022-03-16] MEDS ORDERED: KETOROLAC 30 MG/1 ML INJ IV ONE (10:53)
[2022-03-16 11:27] LABS: Hematocrit 34.8 % (30.3-42.9); Hemoglobin 11.2 gm/dl (10.1-14.3); Mean Corpuscular HGB Conc 32 % (30-34); Mean Corpuscular Volume 83 fl (79-97); Platelet Count 285 K/mm3 (140-440); Red Blood Count 4.19 M/mm3 (3.65-5.03)
[2022-03-16 11:47] LABS: Alanine Aminotransferase 34 units/L (7-56); Albumin 4.1 g/dL (3.9-5); Blood Urea Nitrogen 8 mg/dL (7-17); Calcium 8.9 mg/dL (8.4-10.2); Hemolysis Index 83
[2022-03-16 11:48] LABS: BUN/Creatinine Ratio 20
[2022-03-16 12:18] LABS: Bilirubin,Urine NEG (Negative); Blood,Urine MOD (Negative); Color,Urine Yellow (Yellow); Urobilinogen,Urine < 2.0 mg/dL (<2.0)
[2022-03-16 12:49] LABS: Bacteria,Urine 4+ /HPF (Negative); Hyaline Casts,Urine 2 /LPF; Mucus,Urine FEW /HPF
[2022-03-16 12:53] LABS: WBC,Urine > 182.0 /HPF (0.0-6.0)
[2022-03-16] MEDS ORDERED: cefTRIAXone/NS 1 GM/50 ML 1 GM/50 ML BAG IV ONE (13:09)
--- NOTE | 2022-03-16 13:48 | Emergency Department Report ---
ED Female HPI - General Chief complaint: Pain General Stated complaint: SHIVERS Time Seen by Provider: 03/16/22 10:13 Source: patient, EMS Mode of arrival: Stretcher Limitations: No Limitations - History of Present Illness Initial comments: 52-year-old black female with a past medical history of hyperlipidemia and a TIA presents to the emergency department for evaluation of 1 week history of worsening urinary symptoms and abdominal pain. She states that 1 week ago, she started to have dysuria and foul colored urine, and because she has a history of urinary tract infections, she decided to take Azo [id number]. She states that her symptoms did not improve and then a couple days ago she started to have fever, chills, abdominal pain, nausea, and vomiting. She states that she had a fever of 102. She denies diarrhea and vaginal discharge. MD Complaint: pelvic pain -: Gradual, week(s) (1) Location: suprapubic, LLQ, RLQ Radiation: L flank, R flank Severity: severe Severity scale (0 -10): 10 Quality: aching Consistency: constant Worsens with: urination, other (Ambulation) Are you Now?: No Associated Symptoms: abdominal pain, nausea/vomiting, fever/chills, loss of appetite, dysuria. denies: vaginal discharge, vaginal bleeding, headaches, hematuria, rash, seizure, shortness of breath, syncope, weakness - Related Data Sexually active: Yes Previous Rx's Medication Instructions Recorded Last Taken Type Aspirin EC [Halfprin EC] 81 mg PO QDAY #30 tablet. 08/30/17 Unknown Rx Pravastatin [Pravachol] 20 mg PO QHS #30 tablet 08/30/17 Unknown Rx Zolpidem [Ambien] 5 mg PO QHS PRN #10 tablet 08/30/17 Unknown Rx Sulfamethoxazole/Trimethoprim 1 each PO BID #14 tablet 02/05/18 Unknown Rx [Bactrim DS TAB] Acetaminophen [Non-Aspirin Extra 500 mg PO Q6HR PRN #30 tablet 12/20/21 Unknown Rx Strength] Ibuprofen [Motrin] 600 mg PO Q8H PRN #30 tablet 12/20/21 Unknown Rx Metoclopramide [Reglan] 10 mg PO QID PRN #30 tablet 12/20/21 Unknown Rx Ciprofloxacin HCl [Ciprofloxacin 500 mg PO BID #28 tab 03/16/22 Unknown Rx TAB] Ketorolac [Toradol] 10 mg PO Q6H PRN #12 tab 03/16/22 Unknown Rx Ondansetron [Zofran Odt] 4 mg PO Q8HR PRN #12 tab.rapdis 03/16/22 Unknown Rx Phenazopyridine [Pyridium] 100 mg PO BID 3 Days #6 tab 03/16/22 Unknown Rx Allergies Allergy/AdvReac Type Severity Reaction Status Date / Time No Known Allergies Allergy Verified 12/17/16 17:57 ED Review of Systems ROS: Stated complaint: SHIVERS Other details as noted in HPI Comment: All other systems reviewed and negative Constitutional: chills, fever. denies: diaphoresis, malaise, weakness ENT: denies: congestion Respiratory: denies: cough, orthopnea, shortness of breath, SOB with exertion, SOB at rest, wheezing Cardiovascular: denies: chest pain, palpitations, dyspnea on exertion, orthopnea, edema, syncope, paroxysmal nocturnal dyspnea Gastrointestinal: abdominal pain, nausea, vomiting. denies: diarrhea, hematemesis, melena, hematochezia Genitourinary: dysuria. denies: urgency, frequency, hematuria, discharge Musculoskeletal: back pain Skin: denies: rash, lesions Neurological: denies: headache, weakness, numbness, paresthesias, confusion, abnormal gait Psychiatric: denies: anxiety, depression ED Past Medical Hx - Past Medical History Hx Hypertension: No Hx CVA: Yes (TIA (OCTOBER 2016)) Hx Congestive Heart Failure: No Hx Diabetes: No Hx Seizures: No Hx Asthma: No Hx COPD: No Additional medical history: HIGH CHOLESTEROL. LEFT ICA STENOSIS - Surgical History Additional Surgical History: TUBAL LIGATION - Social History Smoking Status: Former Smoker Substance Use Type: None - Medications Home Medications: Home Medications Medication Instructions Recorded Confirmed Last Taken Type Aspirin EC [Halfprin EC] 81 mg PO QDAY #30 tablet. 08/30/17 Unknown Rx Pravastatin [Pravachol] 20 mg PO QHS #30 tablet 08/30/17 Unknown Rx Zolpidem [Ambien] 5 mg PO QHS PRN #10 tablet 08/30/17 Unknown Rx Sulfamethoxazole/Trimethoprim 1 each PO BID #14 tablet 02/05/18 Unknown Rx [Bactrim DS TAB] Acetaminophen [Non-Aspirin Extra 500 mg PO Q6HR PRN #30 tablet 12/20/21 Unknown Rx Strength] Ibuprofen [Motrin] 600 mg PO Q8H PRN #30 tablet 12/20/21 Unknown Rx Metoclopramide [Reglan] 10 mg PO QID PRN #30 tablet 12/20/21 Unknown Rx Ciprofloxacin HCl [Ciprofloxacin 500 mg PO BID #28 tab 03/16/22 Unknown Rx TAB] Ketorolac [Toradol] 10 mg PO Q6H PRN #12 tab 03/16/22 Unknown Rx Ondansetron [Zofran Odt] 4 mg PO Q8HR PRN #12 tab.rapdis 03/16/22 Unknown Rx Phenazopyridine [Pyridium] 100 mg PO BID 3 Days #6 tab 03/16/22 Unknown Rx ED Physical Exam - General Limitations: No Limitations General appearance: alert, in no apparent distress - Head Head exam: Present: atraumatic, normocephalic - Eye Eye exam: Present: normal appearance. Absent: conjunctival injection - Neck Neck exam: Present: normal inspection, full ROM. Absent: tenderness, lymphadenopathy - Respiratory Respiratory exam: Present: normal lung sounds bilaterally. Absent: respiratory distress, wheezes, rales, rhonchi, stridor, chest wall tenderness - Cardiovascular Cardiovascular Exam: Present: regular rate, normal heart sounds - GI/Abdominal GI/Abdominal exam: Present: soft, tenderness (Bilateral lower quadrants), normal bowel sounds. Absent: distended, guarding, rebound, rigid - Extremities Exam Extremities exam: Present: normal inspection, normal capillary refill. Absent: pedal edema, joint swelling, calf tenderness - Back Exam Back exam: Present: normal inspection, CVA tenderness (R), CVA tenderness (L). Absent: vertebral tenderness - Neurological Exam Neurological exam: Present: alert, oriented X3, normal gait - Psychiatric Psychiatric exam: Present: normal affect, normal mood - Skin Skin exam: Present: warm, dry, intact, normal color ED Course Vital Signs 03/16/22 03:22 Temperature 98.9 F Pulse Rate 82 Respiratory 16 Rate Blood Pressure 132/76 [Right] O2 Sat by Pulse 99 Oximetry ED Medical Decision Making - Lab Data Result diagrams: 03/16/22 11:11 03/16/22 11:11 - Medical Decision Making 52-year-old black female with a past medical history of hyperlipidemia and a TIA presents to the emergency department for evaluation of 1 week history of worsening urinary symptoms and abdominal pain. She states that 1 week ago, she started to have dysuria and foul colored urine, and because she has a history of urinary tract infections, she decided to take Azo [id number]. She states that her symptoms did not improve and then a couple days ago she started to have fever, chills, abdominal pain, nausea, and vomiting. She states that she had a fever of 102. She denies diarrhea and vaginal discharge. Patient found to have bilateral CVA tenderness on assessment along with elevated WBCs and nitrates in urine. Patient was treated with Rocephin 1 g IV while in the emergency department and discharged home on 7-day course of Cipro. She was given Toradol to use as needed for pain along with 3-day course Pyridium. She was advised to increase noncaffeinated fluid intake, take medications as prescribed, and follow-up with primary care provider if no improvement or worsening symptoms. She verbalizes understanding of and agreement with plan of care. Critical care attestation.: If time is entered above; I have spent that time in minutes in the direct care of this critically ill patient, excluding procedure time. ED Disposition Clinical Impression: UTI (urinary tract infection) Qualifiers: Urinary tract infection type: acute cystitis Hematuria presence: with hematuria Qualified Code(s): N30.01 - Acute cystitis with hematuria Disposition: HOME / SELF CARE / HOMELESS Is pt being admited?: No Does the pt Need Aspirin: No Condition: Stable Instructions: Antibiotic Medicine, Adult, [id number], Urinary Tract Infection, Adult, [id number] Additional Instructions: Take medications as prescribed. Increase intake of noncaffeinated fluids. Follow-up with primary care provider if no improvement or worsening symptoms. Return to the emergency department as needed. Prescriptions: Ciprofloxacin HCl [Ciprofloxacin TAB] 500 mg PO BID #28 tab Phenazopyridine [Pyridium] 100 mg PO BID 3 Days #6 tab Ketorolac [Toradol] 10 mg PO Q6H PRN #12 tab PRN Reason: Pain Ondansetron [Zofran Odt] 4 mg PO Q8HR PRN #12 tab.rapdis PRN Reason: Nausea And Vomiting Referrals: DUKE GARRISON MD [Primary Care Provider] - 3-5 Days Forms: Work/School Release Form(ED) Time of Disposition: 13:48
[2022-03-16] MEDS ORDERED: ACETAMINOPHEN 500 MG TAB PO ONE (14:13)
== END 2022-03-16 14:51 | disposition home or self-care (01) ==
LOC: ED 03:09
DX: N39.0 Urinary tract infection, site not specified (principal); Z86.73 Personal history of transient ischemic attack (TIA), and cerebral infarction without residual deficits; Z87.891 Personal history of nicotine dependence; Z79.899 Other long term (current) drug therapy
CPT/HCPCS: 36415; 80053; 81001; 83690; 85027; 96361; 96365; 96375; 99284; J0696; J1885; J2405; J7030